=== PATIENT | female | born 1935 | race Caucasian/White ===

== ENCOUNTER → 2017-10-11 06:18 | Outpatient (CLI) | payer MEDICARE, OTHER, SELFPAY ==
--- NOTE | 2017-10-11 09:34 | STRESSREP ---
Stress Test Report Date: 10/11/2017 Procedure: Pharmacologic stress nuclear imaging study Indications: Chest pain [place]: Non-CAD related cardiomyopathy; ICD Consent: Per the patient Procedure: The patient underwent pharmacologic (Regadenoson) evaluation with a peak heart rate of 104 beats per minute (74 predicted maximal heart rate) and a peak blood pressure of 158/90 mmHg. The baseline ECG demonstrated electronic ventricular paced rhythm. The peak pharmacologic ECG demonstrated electronic ventricular paced rhythm. There were occasional PVCs pretest, during infusion, and recovery. [There was no complaint of chest discomfort during pharmacologic infusion or recovery]. The examination was discontinued secondary to completion of protocol. Impression: 1. Pharmacologic (Regadenoson) evaluation 2. Peak pharmacologic ECG with a continued electronic ventricular paced rhythm. 3. There were occasional PVCs pretest, during infusion, and recovery 4. Nuclear images pending Myocardial perfusion imaging study: Technique: The patient was injected with 11.7 millicuries of technetium 99m Cardiolite and subsequently rest SPECT Cardiolite nuclear imaging was obtained in the horizontal long, vertical long, and short axis views. The patient underwent pharmacologic (Regadenoson) evaluation with a peak heart rate of 104 beats per minute (74 % percent predicted maximal heart rate) and a peak blood pressure of 158/90 mmHg. The patient was injected with 33.3 millicuries of technetium 99m Cardiolite and subsequently stress SPECT Cardiolite nuclear imaging was obtained in the horizontal long, vertical long, and short axis views. A gated Cardiolite study at peak stress was obtained. Interpretation: Rest and stress SPECT Cardiolite nuclear imaging status post realignment, normalization, and attenuation correction demonstrate dense of diminished absence of myocardial perfusion/tracer uptake in the apical areas without significant change between rest and stress. There is diminished end systolic thickening and brightening especially in the apical areas. The gated Cardiolite study demonstrates diminished myocardial thickening and inward wall motion especially in the apical areas. The reported LVEF is 29 %. Impression: 1. Rest and stress SPECT Cardiolite nuclear imaging demonstrating diminished myocardial perfusion/tracer uptake in the apical areas without significant change between rest and stress potentially compatible with an area of previous myocardial injury/infarction with no obvious myocardial perfusion changes consider diagnostic for associated stress-induced myocardial ischemia. 2. The gated Cardiolite study reports an LVEF of 29%. This note was generated with [employer] software. It may contain incorrect words, spelling, and punctuation that were not noted in checking the note before signing.
== END ==
PROVIDERS: Family Provider Family Medicine; PCP Family Medicine; Visit Provider Internal Medicine Cardiovascular Disease
DX: I10 Essential (primary) hypertension (principal); R07.9 Chest pain, unspecified; I44.7 Left bundle-branch block, unspecified; I42.0 Dilated cardiomyopathy; Z95.810 Presence of automatic (implantable) cardiac defibrillator
CPT/HCPCS: 78452; 93017; A9500; A4216; J2785

== ENCOUNTER → 2018-09-09 06:59 | Outpatient (CLI) | payer MEDICARE, OTHER, SELFPAY ==
[2018-09-09 07:08] LABS: Mucous, Urine 0 SEEN /hpf (<or=2+); Red Blood Cells-Urine 0 SEEN /hpf (0-5); White Blood Cells 0 SEEN /hpf (0-5)
[2018-09-09 07:23] LABS: Color, Urine Yellow (Yellow); Glucose, Dipstick Normal (Normal); Ketone-Dipstick Negative (Negative); Leukocyte Esterase-Dipstick 25 /ul (Negative); Nitrite-Dipstick Negative (Negative); Occult Blood-Urine Negative /ul (Negative); Protein-Dipstick 30 mg/dl (Negative); Urine Bilirubin Dipstick Negative (Negative); Urine Clarity Sl. Cloudy (Clear); Urine Urobilinogen Normal (Normal)
--- NOTE | 2018-09-09 07:25 | RAD_ITS ---
STUDY: X-RAY CHEST REASON FOR EXAM: Female, 83 years old. Pacemaker generator change. TECHNIQUE: PA and lateral views of the chest. COMPARISON: Comparison is made with prior study dated October 15, 2013. FINDINGS: Stable mild increased markings at the lung bases suggestive of a mild bibasilar scarring. This is more prominent on the left side. There is no demonstrated pleural abnormality. There is moderate cardiac enlargement. A left-sided dual-chamber pacemaker is seen. Normal mediastinum and dale. Normal visualized pulmonary arteries. There is atherosclerotic calcification of the aortic arch with tortuosity. There is demineralization of the osseous structures. Normal visualized ribs, clavicles, and shoulders. Surgical clips are seen in the right upper quadrant suggestive of prior cholecystectomy. RAD/Chest PA and Lateral IMPRESSION: Stable mild increased markings at the lung bases suggestive of a mild interstitial scarring. Electronically Signed: Cipriano Medina, at 10:01 EDT , Service support ,
[2018-09-09 07:31] LABS: Bacteria RARE /hpf (None Seen); Squamous Epithelial Cells - UA 0-5 SEEN /hpf (5-10)
[2018-09-09 07:38] LABS: Hemoglobin 10.3 g/dl (12.0-15.0); Mean Corp Hgb Conc 32.2 g/gl (32-36); Mean Corpuscular Volume 62.1 fL (81-99); Mean Platelet Vol. 9.2 fl (6.2-12.0); Platelet Count 311 K/mm3 (150-450); RBC Distribution Width CV 16.1 % (11.6-14.6); RBC Distribution Width SD 35.7 fl (35.1-43.9); Red Blood Count 5.15 M/mm3 (4.2-5.4); White Blood Count 7.6 K/mm3 (4.4-11.0)
[2018-09-09 07:40] LABS: International Normalized Ratio 1.1; Prothrombin Time (Protime)PT. 13.6 SECONDS (11.7-14.9)
[2018-09-09 07:47] LABS: Anion Gap 10 (5-15); BUN 25 mg/dL (7-18); BUN/Creat Ratio 20.2 RATIO (10-20); Calcium,Total 9.7 mg/dL (8.5-10.1); Chloride 105 mmol/L (98-107); Creatinine, Serum 1.24 mg/dL (0.55-1.02); EST Glomerular Filtration Rate 44 mL/min (>60); Est Glom Filt Rate - Afr Amer 53 mL/min (>60); Glucose 133 mg/dL (74-106); Potassium 3.2 mmol/L (3.5-5.1); Sodium Level 144 mmol/L (136-145)
[2018-09-09 07:57] LABS: Scan Indicated on CBC? Y/N NO
== END ==
PROVIDERS: Family Provider Family Medicine; PCP Family Medicine; Referring Provider Internal Medicine Cardiovascular Disease; Visit Provider Internal Medicine Cardiovascular Disease
DX: I42.0 Dilated cardiomyopathy (principal); I44.7 Left bundle-branch block, unspecified; Z95.810 Presence of automatic (implantable) cardiac defibrillator
CPT/HCPCS: 36415; 71046; 80048; 81001; 85027; 85610

== ENCOUNTER 2018-09-26 09:26 | Day surgery (SDC) | payer MEDICARE, OTHER, SELFPAY ==
[2018-09-09 09:46] VITALS: BMI 25.0
--- NOTE | 2018-09-09 10:42 | HP_ITS ---
HPI HPI History of Present Illness Surgical H&P: Yes Details: This is an 83-year-old white female who presents today for outpatient cardiovascular follow-up. She has a history of a non-CAD related cardiomyopathy status post biventricular ICD/TELEHEALTH DIRECTOR therapy superimposed upon a history of underlying aortic valve disease, hyperlipidemia, and hypertension. She notes overall from a cardiovascular standpoint she has had no symptoms suspicious for acute angina pectoris, acute CHF/pulmonary edema, near syncope/syncope, or ICD discharge. She notes while spending the winter in [place] her medications were adjusted. Her ARB and her Spironolactone/Aldactone were discontinued as well as her statin therapy. She does not understand why. She did have her ICD interrogated. She is due to have a generator change on 09-26-18. She also had laboratory work done this morning. It is noted that her potassium level was low at 3.2. Intake Vital Signs 09/09/18 Height 5 ft 2 in 09/09/18 Weight: 137 lb 09/09/18 Body Mass Index (BMI) 25.0 09/09/18 Blood Pressure 100/56 L 09/09/18 Blood Pressure Location Lt brachial 09/09/18 Blood Pressure Position Sitting 09/09/18 Respiratory Rate 16 09/09/18 Pulse Rate 76 09/09/18 Pulse Source Auscultation Intake Visit Reasons: H&P/gen change 09-26; Kaylene 10:30 Supervisor Doping Required: No Accompanied by: Self Allergies SALENA Inhibitors Allergy (Verified 09/09/18 09:46) Unknown cefdinir [From Omnicef] Allergy (Verified 09/09/18 09:46) Unknown cephalexin Allergy (Verified 09/09/18 09:46) Unknown clarithromycin [From Biaxin] Allergy (Verified 09/09/18 09:46) Unknown codeine Allergy (Verified 09/09/18 09:46) Unknown fosinopril sodium [From Monopril] Allergy (Verified 09/09/18 09:46) Unknown lansoprazole [From Prevacid] Allergy (Verified 09/09/18 09:46) Unknown meperidine HCl [From Demerol] Allergy (Verified 09/09/18 09:46) Unknown omeprazole [From Prilosec] Allergy (Verified 09/09/18 09:46) Unknown omeprazole magnesium [From Prilosec] Allergy (Verified 09/09/18 09:46) Unknown pseudoephedrine HCl [From Sudafed] Allergy (Verified 09/09/18 09:46) Unknown rabeprazole sodium [From Aciphex] Allergy (Verified 09/09/18 09:46) Unknown Medications Albuterol Aerosols [Ventolin Aerosols] 2.5 mg INHALATION Q6H PRN PRN 10/21/13 [History Confirmed 09/09/18] Budesonide/Formoterol 160/4.5 [Symbicort 160/4.5 Mcg Inhaler (SP)] 4.5 mcg INHALATION PRN PRN 10/21/13 [History Confirmed 09/09/18] Carvedilol 25 mg PO BID 10/21/13 [History Confirmed 09/09/18] Fluticasone 0.05% [Flonase Nasal [place]] 1 spray NASAL DAILY 10/21/13 [History Confirmed 09/09/18] calcium carbonate 200 mg calcium (500 mg) chewable tablet 200 mg PO DAILY PRN tab 09/09/18 [History Confirmed 09/09/18] cholecalciferol (vitamin D3) 5,000 unit capsule 5,000 unit PO DAILY 09/09/18 [History Confirmed 09/09/18] coenzyme Q10 200 mg/gram oral powder 200 mg PO DAILY g 09/09/18 [History Confirmed 09/09/18] hydrochlorothiazide 25 mg tablet 25 mg PO DAILY tab 09/09/18 [History Confirmed 09/09/18] irbesartan 75 mg tablet 75 mg PO DAILY #90 tab 09/09/18 [Rx Confirmed 09/09/18] omega-3 fatty acids 1,000 mg capsule 1,000 mg PO DAILY 09/09/18 [History Confirmed 09/09/18] potassium chloride ER 20 mEq tablet,extended release 20 meq PO DAILY #30 tab 09/09/18 [Rx Confirmed 09/09/18] ranitidine 150 mg tablet 150 mg PO BID 09/09/18 [History Confirmed 09/09/18] spironolactone 25 mg tablet 12.5 mg PO DAILY #90 tab 09/09/18 [Rx Confirmed 09/09/18] PFSH Medical History Cardiomyopathy (Chronic) Essential hypertension (Chronic) Hyperlipidemia (Acute) Chest pain (Acute) Dilated cardiomyopathy (Chronic) 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) Hypertension (Inactive) Surgical History History of bone marrow biopsy (Resolved) Social History Smoking Status: Never smoker ROS Const Const: Positive for fatigue; negative for weakness, frequent falls, excessive sweating, weight gain or weight loss Eyes Eyes: Negative for transient loss of vision, blurry vision or change in vision ENT ENT: Negative for dizziness or balance problems Cardio Chest Pain: Yes Character: dull, squeezing Onset: exercise Location: left chest Duration: brief Relieving: rest Palpitations: No Edema: None Muscle aches with walking: None Resp Respiratory: Negative for SOB with activity or SOB at rest GI GI: Negative vomiting or vomiting blood/hematemesis : Negative for hematuria Musc Musc: Positive for muscle aches/ myalgia (bulging disc, bilat LE pain); negative for muscle weakness, joint pain or balance problems Skin Skin: Negative non-healing lesions or rash Neuro Neuro: Negative for dizziness, lightheadedness, orthostatic symptoms, frequent falls, weakness or blurry vision Isaias Hematologic/Lymphatic: Negative for easy bleeding Endo Endo: Positive for fatigue; negative for excessive sweating Psych Psych: Negative for anxiety or depression Allergy Allergy/Immunology: Negative for hives, Negative for rash Cardiology Exam Const Appearance: cooperative, healthy appearing, comfortable, no acute distress, well developed and well groomed Nutritional Appearance: average body habitus Orientation: alert, awake and oriented x3 Head Head: normal to inspection, normocephalic and atraumatic Ears: hearing grossly normal bilaterally Nose: external nose normal Face and Sinus: face symmetric Mouth: oral mucosae normal Teeth and gingiva: fair dentition Eyes Eyelids: eyelids normal Conjunctivae: conjunctivae normal Pupils: PERRL EOM: EOM intact bilaterally Neck Neck: normal visual inspection and full ROM Carotids: normal carotid upstroke Chest Chest inspection: normal inspection of the chest, symmetric chest movement and normal respiratory effort Auscultation: Bilateral: Clear to Auscultation Cardio Palpation: normal PMI Rate: regular rate Rhythm: regular rhythm Heart sounds: S1 normal and S2 normal Murmur: Grade 2/6, soft, mid systolic, LLSB and LVOT GI GI: normal to inspection, soft and bowel sounds present Neuro General: alert, awake, oriented x3 and moves all extremities Skin Skin: no rashes or lesions noted Extremities Pulses: Normal: Right Radial Pulse, Left Radial Pulse Lower Extremity Edema: None: Bilateral Psych Psychological: normal affect Assessment & Plan 1. Dilated cardiomyopathy I42.0 Plan At the present time she will continue risk factor modification and medical management. With her medications ideally as long as she tolerates it with no adverse effects she would be on additional medical therapy with her ARB and her Spironolactone/Aldactone therapy. Thus her Avapro will be restarted at her previous dose of 75 mg a day. Her Spironolactone/Aldactone will be restarted at her previous dose of 12.5 mg a day. She was also noted to have a low potassium. In the interim she will be placed on a potassium supplement with 40 mEq p.o. x1 on day 1 and then 20 mEq p.o. daily. She will be asked to have her BMP rechecked in approximately 1 week. At that time consideration will be given as to whether or not she needs to remain on her potassium supplement or not. Hopefully she will tolerate the medication adjustments without any adverse effect. Hopefully they will help with her underlying cardiovascular condition. Orders Orders: Basic Metabolic Profile (BMP) 1 Week 2. Biventricular implantable cardioverter-defibrillator (ICD) in situ Z95.810 Plan She is being scheduled for upcoming biventricular ICD/TELEHEALTH DIRECTOR therapy/device change. This is tentatively scheduled for 09-26-18 to be performed at [facility]. Orders Orders: 12 Lead EKG performed by [facility] [place] Today Basic Metabolic Profile (BMP) 1 Week 3. Aortic valve disorder I35.9 Plan She does have a history of an underlying aortic valve disorder. Her most recent transthoracic echocardiogram was performed on 08-27-15. At that time her aortic valve demonstrated mild aortic valve stenosis. It may be reasonable in time to repeat her transthoracic echocardiogram to reassess her aortic valve anatomy and physiology. However as she has been off her medication it may be reasonable to wait for a period of time before repeating it to not only reassess her aortic valve but also her ventricular size, wall motion, and systolic function. 4. Hyperlipidemia, unspecified hyperlipidemia type E78.5 Plan A copy of her most recent lipid labs will be requested for continuity of care purposes. This may help decide whether she needs to remain on lipid-lowering therapy or not. Orders Orders: Basic Metabolic Profile (BMP) 1 Week 5. Essential hypertension I10 Plan Her blood pressure appears to be within acceptable range at this time. Hopefully restarting her medications at low dose this will not negatively affect her blood pressure to the point where she cannot tolerate her medications. Orders Orders: 12 Lead EKG performed by [facility] Today Basic Metabolic Profile (BMP) 1 Week Plan Detail Other Orders Orders: 12 Lead EKG performed by [facility] Today I44.7 Other Medications New: irbesartan (Avapro) 75 mg PO DAILY 90 tabs 3RF spironolactone (Aldactone) 12.5 mg (1/2 x 25 mg) PO DAILY 90 tabs 3RF potassium chloride ER 2 tablets on Day 1; then 1 tab a day 20 mEq PO DAILY 30 tabs 3RF Additional Comments The above was discussed with her. She was agreeable to this approach. Thank you for allowing me to participate in the care of your patient. Please don't hesitate to call if any issues arise. This note was generated using a voice recognition system and there may be incorrect words, spelling or punctuation that were not noted when reviewing the office note prior to saving. Follow Up 09/09/18 (copy of PCP lipid labs) 6 Months (PFM) Coding Level of Care Code Off vis,est,level 4 Diagnoses Dilated cardiomyopathy I42.0 Biventricular implantable cardioverter-defibrillator (ICD) in situ Z95.810 Aortic valve disorder I35.9 Hyperlipidemia, unspecified hyperlipidemia type E78.5 ??Hyperlipidemia type: unspecified Essential hypertension I10 Coding Level of Care Code Off vis,est,level 4 Diagnoses Dilated cardiomyopathy I42.0 Biventricular implantable cardioverter-defibrillator (ICD) in situ Z95.810 Aortic valve disorder I35.9 Hyperlipidemia, unspecified hyperlipidemia type E78.5 ??Hyperlipidemia type: unspecified Essential hypertension I10 Supplemental Info Supplemental Information Stress Test Report Date: 10/11/2017 Procedure: Pharmacologic stress nuclear imaging study Indications: Chest pain [place]: Non-CAD related cardiomyopathy; ICD Consent: Per the patient Procedure: The patient underwent pharmacologic (Regadenoson) evaluation with a peak heart rate of 104 beats per minute (74 predicted maximal heart rate) and a peak blood pressure of 158/90 mmHg. The baseline ECG demonstrated electronic ventricular paced rhythm. The peak pharmacologic ECG demonstrated electronic ventricular paced rhythm. There were occasional PVCs pretest, during infusion, and recovery. [There was no complaint of chest discomfort during pharmacologic infusion or recovery]. The examination was discontinued secondary to completion of protocol. Impression: 1. Pharmacologic (Regadenoson) evaluation 2. Peak pharmacologic ECG with a continued electronic ventricular paced rhythm. 3. There were occasional PVCs pretest, during infusion, and recovery 4. Nuclear images pending Myocardial perfusion imaging study: Technique: The patient was injected with 11.7 millicuries of technetium 99m Cardiolite and subsequently rest SPECT Cardiolite nuclear imaging was obtained in the horizontal long, vertical long, and short axis views. The patient underwent pharmacologic (Regadenoson) evaluation with a peak heart rate of 104 beats per minute (74 % percent predicted maximal heart rate) and a peak blood pressure of 158/90 mmHg. The patient was injected with 33.3 millicuries of technetium 99m Cardiolite and subsequently stress SPECT Cardiolite nuclear imaging was obtained in the horizontal long, vertical long, and short axis views. A gated Cardiolite study at peak stress was obtained. Interpretation: Rest and stress SPECT Cardiolite nuclear imaging status post realignment, normalization, and attenuation correction demonstrate dense of diminished absence of myocardial perfusion/tracer uptake in the apical areas without significant change between rest and stress. There is diminished end systolic thickening and brightening especially in the apical areas. The gated Cardiolite study demonstrates diminished myocardial thickening and inward wall motion especially in the apical areas. The reported LVEF is 29 %. Impression: 1. Rest and stress SPECT Cardiolite nuclear imaging demonstrating diminished myocardial perfusion/tracer uptake in the apical areas without significant change between rest and stress potentially compatible with an area of previous myocardial injury/infarction with no obvious myocardial perfusion changes consider diagnostic for associated stress-induced myocardial ischemia. 2. The gated Cardiolite study reports an LVEF of 29%. Labs LDL Cholesterol 92 mg/dL (0-130) 10/15/13 HDL Cholesterol 45 mg/dL (40-) 10/15/13 Triglycerides 102 mg/dL (0-199) 10/15/13 VLDL Cholesterol 20 mg/dL (5-40) 10/15/13 Diagnostics Electrocardiogram 09/09/18 Stress Test Nuclear Medicine 10/11/17 Stress Test 10/11/17 Pacemaker Check 07/30/18 Chest X-Ray 09/09/18 09/09/18 [id number] <Electronically signed by Fernandez villarreal MD> Date _ Fernandez Hernandez MD I have re-examined the patient. There are no clinical changes since date of exam.
[2018-09-25 10:08] VITALS: BMI 25.0
--- NOTE | 2018-09-26 10:11 | PCM.HP.BLA ---
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 Status: Chronic (2) Cardiomyopathy Status: Chronic History and Physical Date of Admission: 09/26/18 [facility] Medical Records Department [address] [place] [address] History and Physical 09/09/18 1042 MR#: [id number] Acct: [id number] Name: NATASHA DAVIDSON Rep #: [id number] : [id number] From: Fernandez Hernandez MD PCP: Amadou Nye MD Status: [facility] [place] [facility] H[facility] HPI History of Present Illness Surgical H&P: Yes Details: This is an 83-year-old white female who presents today for outpatient cardiovascular follow-up. She has a history of a non-CAD related cardiomyopathy status post biventricular ICD/RECRUITER ACCOUNT MANAGER therapy superimposed upon a history of underlying aortic valve disease, hyperlipidemia, and hypertension. She notes overall from a cardiovascular standpoint she has had no symptoms suspicious for acute angina pectoris, acute CHF/pulmonary edema, near syncope/syncope, or ICD discharge. She notes while spending the winter in [place] her medications were adjusted. Her ARB and her Spironolactone/Aldactone were discontinued as well as her statin therapy. She does not understand why. She did have her ICD interrogated. She is due to have a generator change on 09-26-18. She also had laboratory work done this morning. It is noted that her potassium level was low at 3.2. Intake VS: see chart Allergies SALENA Inhibitors Allergy (Verified 09/09/18 09:46) Unknown cefdinir [From Omnicef] Allergy (Verified 09/09/18 09:46) Unknown cephalexin Allergy (Verified 09/09/18 09:46) Unknown clarithromycin [From Biaxin] Allergy (Verified 09/09/18 09:46) Unknown codeine Allergy (Verified 09/09/18 09:46) Unknown fosinopril sodium [From Monopril] Allergy (Verified 09/09/18 09:46) Unknown lansoprazole [From Prevacid] Allergy (Verified 09/09/18 09:46) Unknown meperidine HCl [From Demerol] Allergy (Verified 09/09/18 09:46) Unknown omeprazole [From Prilosec] Allergy (Verified 09/09/18 09:46) Unknown omeprazole magnesium [From Prilosec] Allergy (Verified 09/09/18 09:46) Unknown pseudoephedrine HCl [From Sudafed] Allergy (Verified 09/09/18 09:46) Unknown rabeprazole sodium [From Aciphex] Allergy (Verified 09/09/18 09:46) Unknown Medications Albuterol Aerosols [Ventolin Aerosols] 2.5 mg INHALATION Q6H PRN PRN 10/21/13 [History Confirmed 09/09/18] Budesonide/Formoterol 160/4.5 [Symbicort 160/4.5 Mcg Inhaler (SP)] 4.5 mcg INHALATION PRN PRN 10/21/13 [History Confirmed 09/09/18] Carvedilol 25 mg PO BID 10/21/13 [History Confirmed 09/09/18] Fluticasone 0.05% [Flonase Nasal [place]] 1 spray NASAL DAILY 10/21/13 [History Confirmed 09/09/18] calcium carbonate 200 mg calcium (500 mg) chewable tablet 200 mg PO DAILY PRN tab 09/09/18 [History Confirmed 09/09/18] cholecalciferol (vitamin D3) 5,000 unit capsule 5,000 unit PO DAILY 09/09/18 [History Confirmed 09/09/18] coenzyme Q10 200 mg/gram oral powder 200 mg PO DAILY g 09/09/18 [History Confirmed 09/09/18] hydrochlorothiazide 25 mg tablet 25 mg PO DAILY tab 09/09/18 [History Confirmed 09/09/18] irbesartan 75 mg tablet 75 mg PO DAILY #90 tab 09/09/18 [Rx Confirmed 09/09/18] omega-3 fatty acids 1,000 mg capsule 1,000 mg PO DAILY 09/09/18 [History Confirmed 09/09/18] potassium chloride ER 20 mEq tablet,extended release 20 meq PO DAILY #30 tab 09/09/18 [Rx Confirmed 09/09/18] ranitidine 150 mg tablet 150 mg PO BID 09/09/18 [History Confirmed 09/09/18] spironolactone 25 mg tablet 12.5 mg PO DAILY #90 tab 09/09/18 [Rx Confirmed 09/09/18] PFSH Medical History Cardiomyopathy (Chronic) Essential hypertension (Chronic) Hyperlipidemia (Acute) Chest pain (Acute) Dilated cardiomyopathy (Chronic) 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) Hypertension (Inactive) Surgical History History of bone marrow biopsy (Resolved) Social History Smoking Status: Never smoker ROS Const Const: Positive for fatigue; negative for weakness, frequent falls, excessive sweating, weight gain or weight loss Eyes Eyes: Negative for transient loss of vision, blurry vision or change in vision ENT ENT: Negative for dizziness or balance problems Cardio Chest Pain: Yes Character: dull, squeezing Onset: exercise Location: left chest Duration: brief Relieving: rest Palpitations: No Edema: None Muscle aches with walking: None Resp Respiratory: Negative for SOB with activity or SOB at rest GI GI: Negative vomiting or vomiting blood/hematemesis : Negative for hematuria Musc Musc: Positive for muscle aches/ myalgia (bulging disc, bilat LE pain); negative for muscle weakness, joint pain or balance problems Skin Skin: Negative non-healing lesions or rash Neuro Neuro: Negative for dizziness, lightheadedness, orthostatic symptoms, frequent falls, weakness or blurry vision Isaias Hematologic/Lymphatic: Negative for easy bleeding Endo Endo: Positive for fatigue; negative for excessive sweating Psych Psych: Negative for anxiety or depression Allergy Allergy/Immunology: Negative for hives, Negative for rash Cardiology Exam Const Appearance: cooperative, healthy appearing, comfortable, no acute distress, well developed and well groomed Nutritional Appearance: average body habitus Orientation: alert, awake and oriented x3 Head Head: normal to inspection, normocephalic and atraumatic Ears: hearing grossly normal bilaterally Nose: external nose normal Face and Sinus: face symmetric Mouth: oral mucosae normal Teeth and gingiva: fair dentition Eyes Eyelids: eyelids normal Conjunctivae: conjunctivae normal Pupils: PERRL EOM: EOM intact bilaterally Neck Neck: normal visual inspection and full ROM Carotids: normal carotid upstroke Chest Chest inspection: normal inspection of the chest, symmetric chest movement and normal respiratory effort Auscultation: Bilateral: Clear to Auscultation Cardio Palpation: normal PMI Rate: regular rate Rhythm: regular rhythm Heart sounds: S1 normal and S2 normal Murmur: Grade 2/6, soft, mid systolic, LLSB and LVOT GI GI: normal to inspection, soft and bowel sounds present Neuro General: alert, awake, oriented x3 and moves all extremities Skin Skin: no rashes or lesions noted Extremities Pulses: Normal: Right Radial Pulse, Left Radial Pulse Lower Extremity Edema: None: Bilateral Psych Psychological: normal affect Assessment & Plan 1. Dilated cardiomyopathy I42.0 Plan At the present time she will continue risk factor modification and medical management. With her medications ideally as long as she tolerates it with no adverse effects she would be on additional medical therapy with her ARB and her Spironolactone/Aldactone therapy. Thus her Avapro will be restarted at her previous dose of 75 mg a day. Her Spironolactone/Aldactone will be restarted at her previous dose of 12.5 mg a day. She was also noted to have a low potassium. In the interim she will be placed on a potassium supplement with 40 mEq p.o. x1 on day 1 and then 20 mEq p.o. daily. She will be asked to have her BMP rechecked in approximately 1 week. At that time consideration will be given as to whether or not she needs to remain on her potassium supplement or not. Hopefully she will tolerate the medication adjustments without any adverse effect. Hopefully they will help with her underlying cardiovascular condition. Orders Orders: Basic Metabolic Profile (BMP) 1 Week 2. Biventricular implantable cardioverter-defibrillator (ICD) in situ Z95.810 Plan She is being scheduled for upcoming biventricular ICD/RECRUITER ACCOUNT MANAGER therapy/device change. This is tentatively scheduled for 09-26-18 to be performed at [facility]. Orders Orders: 12 Lead EKG performed by [facility] Today Basic Metabolic Profile (BMP) 1 Week 3. Aortic valve disorder I35.9 Plan She does have a history of an underlying aortic valve disorder. Her most recent transthoracic echocardiogram was performed on 08-27-15. At that time her aortic valve demonstrated mild aortic valve stenosis. It may be reasonable in time to repeat her transthoracic echocardiogram to reassess her aortic valve anatomy and physiology. However as she has been off her medication it may be reasonable to wait for a period of time before repeating it to not only reassess her aortic valve but also her ventricular size, wall motion, and systolic function. 4. Hyperlipidemia, unspecified hyperlipidemia type E78.5 Plan A copy of her most recent lipid labs will be requested for continuity of care purposes. This may help decide whether she needs to remain on lipid-lowering therapy or not. Orders Orders: Basic Metabolic Profile (BMP) 1 Week 5. Essential hypertension I10 Plan Her blood pressure appears to be within acceptable range at this time. Hopefully restarting her medications at low dose this will not negatively affect her blood pressure to the point where she cannot tolerate her medications. Orders Orders: 12 Lead EKG performed by [facility] Today Basic Metabolic Profile (BMP) 1 Week Plan Detail Other Orders Orders: 12 Lead EKG performed by [facility] Today I44.7 Other Medications New: irbesartan (Avapro) 75 mg PO DAILY 90 tabs 3RF spironolactone (Aldactone) 12.5 mg (1/2 x 25 mg) PO DAILY 90 tabs 3RF potassium chloride ER 2 tablets on Day 1; then 1 tab a day 20 mEq PO DAILY 30 tabs 3RF Additional Comments The above was discussed with her. She was agreeable to this approach. Thank you for allowing me to participate in the care of your patient. Please don't hesitate to call if any issues arise. This note was generated using a voice recognition system and there may be incorrect words, spelling or punctuation that were not noted when reviewing the office note prior to saving. Follow Up 09/09/18 (copy of PCP lipid labs) 6 Months (PFM) Coding Level of Care Code Off vis,est,level 4 Diagnoses Dilated cardiomyopathy I42.0 Biventricular implantable cardioverter-defibrillator (ICD) in situ Z95.810 Aortic valve disorder I35.9 Hyperlipidemia, unspecified hyperlipidemia type E78.5 ??Hyperlipidemia type: unspecified Essential hypertension I10 Coding Level of Care Code Off vis,est,level 4 Diagnoses Dilated cardiomyopathy I42.0 Biventricular implantable cardioverter-defibrillator (ICD) in situ Z95.810 Aortic valve disorder I35.9 Hyperlipidemia, unspecified hyperlipidemia type E78.5 ??Hyperlipidemia type: unspecified Essential hypertension I10 Updated 09/26/2018: Reviewed H&P, assessed pt, no changes since last OV.
--- NOTE | 2018-09-26 12:34 | OP.PCM_ITS ---
Report of Operation Date of Procedure: 09/26/18 Description of Surgical Findings:: Preoperative diagnosis is device at end of life for normal battery depletion. Postoperative diagnosis same as above. After informed consent and IV antibiotics the patient was brought to the [place] catheterization laboratory and the skin over the device was prepped and draped in the usual sterile manner. Intermittent boluses of Versed, and fentanyl were used for sedation and analgesia as well as 1% subcutaneous lidocaine. An incision was made over the pre-existing device. Using blunt and Bovie dissection the pocket was opened and the device was removed. Careful attention was paid not to injure the pre-existing leads. The leads were removed from the device header and they were interrogated. There is normal lead function. Hemostasis was obtained. The pocket was flushed with antibiotic solution. The sponge and needle count were correct. The new device was brought to the field. The leads were placed in the appropriate position in the header and secured by the set screw. The leads and the device were then placed in the pocket. The pocket was closed with a deep layer of running 2-0 Vicryl, a superficial layer of running 4-0 Vicryl, skin with Steri-Strips which were covered with a rolled 4 x 4 and Tegaderm. Patient left the room with the device programmed to proper parameters and there were no complications. The device is a [employer] BiV pacer/ICD chamber generator. All lead parameters were tested and found to be functionally normal. Lead and device serial and model numbers are available in the chart documents provided by the device company merchandising representative procedure summary.
== END 2018-09-26 14:30 | disposition home or self-care (01) ==
LOC: CLSP 09:27
PROVIDERS: Family Provider Family Medicine; PCP Family Medicine; Referring Provider Internal Medicine Cardiovascular Disease; Visit Provider Internal Medicine Cardiovascular Disease
DX: I42.0 Dilated cardiomyopathy (principal); E87.6 Hypokalemia; I35.9 Nonrheumatic aortic valve disorder, unspecified; E78.5 Hyperlipidemia, unspecified; I10 Essential (primary) hypertension; Z95.810 Presence of automatic (implantable) cardiac defibrillator; Z88.1 Allergy status to other antibiotic agents
CPT/HCPCS: 33264; 93641; 99152; 99153; J7040; J7050

== ENCOUNTER → 2019-01-21 12:31 | Outpatient (CLI) | payer MEDICARE, OTHER, SELFPAY ==
[2019-01-16 11:29] VITALS: BMI 24.8
--- NOTE | 2019-01-21 12:32 | ECHOD_ITS ---
Reason For Study: CARDIOMYOPATHY Procedure This was a 2D Doppler, Color Flow transthoracic echocardiogram. The exam was of adequate technical quality. Exam performed in department. Left Ventricle Mildly dilated left ventricle. Moderate segmental systolic dysfunction (see wall motion). The estimated ejection fraction is 30 %. Diastolic function is indeterminate. Anterio-Basal: Hypokinetic. Lateral-Basal: Hypokinetic. Posterior-Basal: Hypokinetic. Infero-Basal: Hypokinetic. Basal inferoseptal: Hypokinetic. Basal anteroseptal: Hypokinetic. Mid-Anterior : Hypokinetic. Mid- Lateral : Hypokinetic. Mid-Posterior: Hypokinetic. Mid-Inferior: Hypokinetic. Mid-inferoseptal : Akinetic. Mid-anteroseptal : Hypokinetic. Anterior [place] : Hypokinetic. Inferior [place] : Akinetic. Lateral [place] : Dyskinetic. Septal [place] : Hypokinetic. Right Ventricle Normal RV size. ICD or pacer leads identified within the right ventricle. Normal systolic function. Atria Normal left atrium. Normal right atrium. ICD or pacer leads identified within the right atrium. No doppler evidence for ASD. Mitral Valve There is mild mitral annular calcification. Extension of the mitral annular calcification onto the mitral valve leaflet. Trivial mitral valve insufficiency. Tricuspid Valve Normal tricuspid valve. Trivial tricuspid valve insufficiency. Right ventricular systolic pressure estimated to be 26 mmHg. Aortic Valve The aortic valve is not well visualized. Moderate focal aortic valve calcification. Pulmonic Valve The pulmonic valve is not well visualized. Great Vessels Normal sized aortic root. Pericardium/Pleural No pericardial effusion. MMode/2D Measurements & Calculations LVIDd: 5.9 cm IVSd: 0.89 cm LVOT diam: 2.0 cm LVIDs: 4.8 cm LVPWd: 0.93 cm LVOT area: 3.3 cm2 RVDd: 2.9 cm FS: 18.6 % Ao root diam: 3.5 cm LAV(MOD-bp): 43.5 ml LA A4 area: 16.2 cm2 LAV(MOD-bp) Indexed: 27.1 ml/m2 LAV(MOD-sp2): 40.2 ml LAV(MOD-sp4): 43.7 ml LA dimension(2D): 3.3 cm RA A4 area: 10.2 cm2 Doppler Measurements & Calculations MV E max adebayo: 44.9 cm/sec Lat Peak E' Adebayo: 3.0 cm/sec Med Peak E' Adebayo: 2.7 cm/sec MV A max adebayo: 113.7 cm/sec E/E' lat: 14.8 E/E' med: 16.6 MV E/A: 0.40 MV V2 max: 114.4 cm/sec Ao V2 max: 168.7 cm/sec LV V1 max: 115.2 cm/sec MV max P.2 mmHg Ao max P.4 mmHg LV V1 max P.3 mmHg MV V2 mean: 51.8 cm/sec Ao V2 mean: 129.8 cm/sec LV V1 mean P.9 mmHg MV mean P.4 mmHg Ao mean P.5 mmHg LV V1 mean: 80.5 cm/sec MV V2 VTI: 37.4 cm Ao V2 VTI: 35.5 cm LV V1 VTI: 23.8 cm MVA(VTI): 2.1 cm2 HOMER(I,D): 2.2 cm2 HOMER(V,D): 2.2 cm2 SV(LVOT): 77.8 ml TR max adebayo: 237.5 cm/sec MV P1/2t-pr_phl: 165.9 msec TR max P.6 mmHg Interpretation Summary Mildly dilated left ventricle. Moderate segmental systolic dysfunction (see wall motion). The estimated ejection fraction is 30 %. There is mild mitral annular calcification. Extension of the mitral annular calcification onto the mitral valve leaflet. Trivial mitral valve insufficiency. Trivial tricuspid valve insufficiency. Moderate focal aortic valve calcification. Right ventricular systolic pressure estimated to be 26 mmHg. Diastolic function is indeterminate. ICD or pacer leads identified within the right atrium ICD or pacer leads identified within the right ventricle. 2D echocardiographic images demonstrate a small mobile somewhat calcified appearing echodensity appearing below the aortic valve apparatus of uncertain etiology with a differential diagnosis including, but not all inclusive of, a prominent Lambl's Exrecence, papillary fibroelastoma, vegetation, etc., cannot be excluded. Comment: C/W the previous TTE of 08/27/2015 there are similar type findings. Ordering Physician: Fernandez Hernandez Referring Physician: GIANFRANCO JACINTO Performed By: Alexandria Renteria, RDCS, RVT
== END ==
PROVIDERS: Family Provider Family Medicine; PCP Family Medicine; Referring Provider Internal Medicine Cardiovascular Disease; Visit Provider Internal Medicine Cardiovascular Disease
DX: I42.0 Dilated cardiomyopathy (principal); Z95.810 Presence of automatic (implantable) cardiac defibrillator
CPT/HCPCS: 93306

== ENCOUNTER 2021-07-14 08:59 | Outpatient (CLI) | payer MEDICARE, OTHER, SELFPAY ==
--- NOTE | 2021-07-14 09:01 | ECHOD_ITS ---
Reason For Study: MURMUR Procedure This was a 2D Doppler, Color Flow transthoracic echocardiogram. The study was technically difficult. Patient could not tolerate pressure of probe during exam. Exam performed in department. Left Ventricle Mildly dilated left ventricle. Severe segmental systolic dysfunction (see wall motion). The estimated ejection fraction is 25 %. Anterio-Basal: Hypokinetic. Infero-Basal: Hypokinetic. Basal inferoseptal: Hypokinetic. Mid-Anterior : Hypokinetic. Mid-Lateral : Hypokinetic. Mid-Posterior: Hypokinetic. Mid-Inferior: Hypokinetic. Mid-inferoseptal : Akinetic. Mid-anteroseptal : Akinetic. Anterior [place] : Akinetic. Inferior [place] : Akinetic. Lateral [place] : Dyskinetic. Septal [place] : Akinetic. Right Ventricle Normal RV size. ICD or pacer leads identified within the right ventricle. Normal systolic function. Atria The left atrium is mildly enlarged. Normal right atrium. ICD or pacer leads identified within the right atrium. No doppler evidence for ASD. Mitral Valve There is mild to moderate mitral annular calcification. Extension of the mitral annular calcification onto the base of the posterior mitral valve leaflet. Mild (1+) mitral valve insufficiency. Tricuspid Valve Normal tricuspid valve. Trivial tricuspid valve insufficiency. Right ventricular systolic pressure estimated to be 60 mmHg. Aortic Valve The aortic valve is not well visualized. Pulmonic Valve The pulmonic valve is not well visualized. Great Vessels Normal sized aortic root. Pericardium/Pleural No pericardial effusion. MMode/2D Measurements & Calculations LVIDd: 5.4 cm IVSd: 0.92 cm LVOT diam: 2.0 cm LVIDs: 4.7 cm LVPWd: 1.0 cm LVOT area: 3.2 cm2 RVDd: 3.2 cm FS: 11.6 % Ao root diam: 3.0 cm LAV(MOD-bp): 68.3 ml LVAd ap4: 40.2 cm2 LAV(MOD-bp) Indexed: 43.7 ml/m2 LVLd ap4: 8.9 cm LAV(MOD-sp2): 66.0 ml EDV(MOD-sp4): 150.0 ml LAV(MOD-sp4): 61.4 ml EDV(sp4-el): 154.8 ml LVAs ap4: 34.3 cm2 LVLs ap4: 8.3 cm ESV(MOD-sp4): 116.8 ml ESV(sp4-el): 120.4 ml EF(MOD-sp4): 22.1 % EF(sp4-el): 22.2 % LVAd ap2: 43.4 cm2 SV(MOD-sp4): 33.2 ml SV(MOD-sp2): 43.3 ml LVLd ap2: 9.1 cm EDV(MOD-sp2): 169.1 ml EDV(sp2-el): 176.0 ml LVAs ap2: 36.5 cm2 LVLs ap2: 8.6 cm ESV(MOD-sp2): 125.8 ml ESV(sp2-el): 130.9 ml EF(MOD-sp2): 25.6 % SV(sp4-el): 34.3 ml LA dimension(2D): 4.0 cm LA A4 area: 20.3 cm2 RA A4 area: 14.7 cm2 Time Measurements MV dec time: 0.20 sec Doppler Measurements & Calculations MV E max adebayo: 117.5 cm/sec Lat Peak E' Adebayo: 8.5 cm/sec Med Peak E' Adebayo: 4.4 cm/sec MV A max adebayo: 83.9 cm/sec E/E' lat: 13.9 E/E' med: 26.7 MV E/A: 1.4 Ao V2 max: 173.0 cm/sec LV V1 max: 70.5 cm/sec SV(LVOT): 48.4 ml Ao max P.0 mmHg LV V1 max P.0 mmHg Ao V2 mean: 121.6 cm/sec LV V1 mean P.0 mmHg Ao mean P.8 mmHg LV V1 mean: 47.3 cm/sec Ao V2 VTI: 35.2 cm LV V1 VTI: 15.2 cm HOMER(I,D): 1.4 cm2 HOMER(V,D): 1.3 cm2 PA V2 max: 79.4 cm/sec TR max adebayo: 377.5 cm/sec TR max P.0 mmHg ECHO/Echo Complete Interpretation Summary The study was technically difficult. Mildly dilated left ventricle. Severe segmental systolic dysfunction (see wall motion). The estimated ejection fraction is 25 %. The left atrium is mildly enlarged. There is mild to moderate mitral annular calcification. Extension of the mitral annular calcification onto the base of the posterior mi tral valve leaflet. Mild (1+) mitral valve insufficiency. Trivial tricuspid valve insufficiency. Right ventricular systolic pressure estimated to be 60 mmHg. Transmitral diastolic flow velocities suggest diastolic dysfunction (pseudonorm al pattern). ICD or pacer leads identified within the right atrium ICD or pacer leads identified within the right ventricle. 2D echocardiographic images demonstrate a small mobile somewhat calcified appea ring echodensity appearing below the aortic valve apparatus of uncertain etiology with a differe ntial diagnosis including, but not all inclusive of, a prominent Lambl's Exrecence, papillary f ibroelastoma, vegetation, etc., cannot be excluded. Comment: C/W the previous TTE of 01/22/20 19 there are similar type findings. Ordering Physician: Fernandez Hernandez Referring Physician: GIANFRANCO JACINTO Performed By: Tara Valencia RDCS
== END 2021-07-14 23:59 | disposition home or self-care (01) ==
LOC: CVS 09:01
PROVIDERS: PCP Family Medicine; Referring Provider Internal Medicine Cardiovascular Disease; Visit Provider Internal Medicine Cardiovascular Disease
DX: I42.0 Dilated cardiomyopathy (principal); I35.9 Nonrheumatic aortic valve disorder, unspecified
CPT/HCPCS: 93306

== ENCOUNTER 2021-08-04 15:37 | Inpatient (IN) | payer MEDICARE, OTHER, SELFPAY ==
--- NOTE | 2021-08-04 15:41 | HP.PCM.HOS_ITS ---
HPI - General General Date of Admission: 08/04/21 HPI Narrative NATASHA DAVIDSON, is a 86 F with an extensive PMH as outlined who was admitted as a transfer from [facility] ED where she had presented with a complaitn of shortness of breath at rest. She says she felt very weak and tired this morning and also felt short of breath and could not lay flat at all which was unusual for her. She denied any chest pain and admitted to a cough and some wheezing. She said cough was productive of clear sputum. She denied any chest pain, palpitations, dizziness, nausea or vomiting. She could not even go into work today because she was so tired so she went to the [facility] emergency room. SHe says she takes HCTZ and is not on any lasix. Her high sensitivity troponin was 138 there, and trended up to 180. [place] BNP [place] [address]. Creatinine was 1.54 with a baseline not known. Her D dimer was elevated, but CTA was negative for PE. CXR showed volume overload. EKG showed a paced rhythm. She was given a dose of lasix and transferred to [facility] for further management. 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 Cardiomyopathy Chest pain Dilated cardiomyopathy Essential hypertension GERD (gastroesophageal reflux disease) Hyperlipidemia Hypertension Hypertension Irregular heart beat Non-smoker Nonrheumatic aortic valve disorder Pacemaker Thalassemia minor Home Medications omega-3 fatty acids 1,000 mg capsule 1,000 mg PO DAILY 09/09/18 [History Last Taken Unknown] famotidine 20 mg tablet 20 mg PO DAILY 01/16/19 [History Last Taken 08/03/21] coenzyme Q10 100 mg capsule 100 mg PO DAILY 12/17/19 [History Last Taken 08/03/21] hyoscyamine sulfate 0.125 mg sublingual tablet 0.125 mg PO BID PRN PRN tablet 07/26/20 [History Last Taken Unknown] phenazopyridine 100 mg tablet 100 mg PO TID PRN 07/26/20 [History Last Taken Unknown] carvedilol 25 mg tablet 25 mg PO BID #180 tab 08/05/20 [Rx Last Taken 08/04/21] hydrochlorothiazide 25 mg tablet 12.5 mg PO DAILY tab 02/01/21 [History Last Taken 08/04/21] simvastatin 20 mg tablet 20 mg PO QHS #90 tab 02/01/21 [Rx Last Taken 08/04/21] albuterol sulfate 90 mcg/actuation aerosol inhaler 2 puff INHALATION Q4H PRN g 06/23/21 [History Last Taken 08/04/21] fluticasone propionate 50 mcg/actuation nasal spray,suspension 2 spray INTRANASAL DAILY 06/23/21 [History Last Taken 08/04/21] multivitamin 1 tab PO DAILY 06/23/21 [History Last Taken 08/03/21] Al hyd-Mg tr-alg ac-sod bicarb [Gaviscon] 1 tab PO DAILY PRN PRN 08/04/21 [History Last Taken Unknown] budesonide-formoterol [Symbicort] 2 puff INHALATION BID 08/04/21 [History Last Taken 08/03/21] cholecalciferol (vitamin D3) [Vitamin D3] 50 mcg PO DAILY 08/04/21 [History Last Taken 08/04/21] sacubitril-valsartan [Entresto] 1 tab PO BID 08/04/21 [History Last Taken 08/04/21] Allergy/AdvReac Type Severity Reaction Status Date / Time amoxicillin Allergy Unknown unknown Verified 06/23/21 10:27 SALENA Inhibitors Allergy Unknown Verified 07/26/20 10:47 cefdinir [From Omnicef] Allergy Unknown Verified 07/26/20 10:47 cephalexin Allergy Unknown Verified 07/26/20 10:47 clarithromycin [From Biaxin] Allergy Unknown Verified 07/26/20 10:47 codeine Allergy Unknown Verified 07/26/20 10:47 fosinopril sodium Allergy Unknown Verified 07/26/20 10:47 [From Monopril] lansoprazole [From Prevacid] Allergy Unknown Verified 07/26/20 10:47 meperidine HCl [From Demerol] Allergy Unknown Verified 07/26/20 10:47 omeprazole [From Prilosec] Allergy Unknown Verified 07/26/20 10:47 omeprazole magnesium Allergy Unknown Verified 07/26/20 10:47 [From Prilosec] pseudoephedrine HCl Allergy Unknown Verified 07/26/20 10:47 [From Sudafed] rabeprazole sodium Allergy Unknown Verified 04/26/21 10:47 [From Aciphex] Surgical History (Updated 08/04/21 @ 16:02 by Silva Hsieh) History of bone marrow biopsy History of cholecystectomy Social History Smoking Status: Never smoker ROS Constitutional Constitutional: Reports fatigue, malaise and weakness; Denies anorexia or chills Eyes Eyes: Denies change in vision ENT HEENT: Denies dysphagia, headache(s), nasal congestion, nasal discharge or sore throat Cardiovascular Cardiovascular: Reports dyspnea on exertion and orthopnea; Denies chest pain, edema, lightheadedness, palpitations, paroxysmal nocturnal dyspnea, rapid heart rate or syncope Respiratory/Chest Respiratory/Chest: Reports productive cough, shortness of breath at rest, shortness of breath with exertion and wheezing; Denies cough or dyspnea Gastrointestinal Gastrointestinal: Denies abdominal pain, coffee ground emesis, nausea or vomiting Genitourinary Genitourinary: Denies dysuria Musculoskeletal Musculoskeletal: Denies back pain or joint pain Neurologic Neurologic: Denies confusion, dizziness, focal weakness, headache(s), seizures or syncope Psychiatric Psychiatric: Denies anxiety Physical Exam Const alert, oriented x3 and no apparent distress General Appearance: cooperative HEENT normocephalic, head/scalp atraumatic and hearing grossly normal bilaterally Eyes PERRL, EOMs intact bilaterally and conjunctivae normal Neck no lymphadenopathy, supple and no JVD Resp Resp Narrative: mildly diminished breath sounds bibasally, no wheezes or crackles. On Cardio regular rate, regular rhythm, S1 normal heart sound, S2 normal heart sound and no murmurs GI normal to inspection, nondistended, normoactive bowel sounds, soft to palpation, non-tender, non-distended and hepatosplenomegaly Extremity normal to inspection, full ROM and no clubbing, cyanosis or edema Peripheral Pulses: Yes pulses 2+ throughout Skin no rashes or lesions noted Neuro oriented x3, CN's II-XII intact bilaterally and moves all extremities Sensorium / Orientation: awake and alert Psych affect normal Assessment & Plan Assessment/Plan (1) Heart failure: PLAN: #Acute on chronic exacerbation of HFrEF * Has a known EF of 25%. * Admit to PCU. * Diuresed with IV Lasix 40 mg twice daily. Monitor intake and output. Fluid restriction to 1500 cc daily. * 2D echo from * July 2021 showed mildly dilated left ventricle with severe segmental systolic dysfunction with EF of 25% and RVSP of 60 mmHg as well as diastolic dysfunction and ICD pacer leads identified in the right atrium and right ventricle. * consult cardiology * On Entresto and carvedilol. We will continue. * Cycle troponins. * #History of dilated cardiomyopathy with ICD in place * Follows with Dr. Hernandez. * On Entresto and carvedilol as well as statin. * #Hyperlipidemia: On statin DVT prophylaxis: Lovenox CODE STATUS:full code * Patient counseled extensively about different types of CODE STATUS including full code, DNR CCA and DNR CCA. Patient elects to be full code. Total rvwr-of-tdag time 17 minutes. Charges/Coding Visit Charges Inpatient E&M: 02062 Init Hosp L3 Procedures Hospitalists Procedures: 07781 Advncd Care Plan 30 Min
[2021-08-04 15:48] VITALS: PULSE 91
[2021-08-04 15:54] VITALS: BMI 24.7
[2021-08-04 16:04] VITALS: BP 150/83; PULSE 92; RESP 16; TEMP 36.6; O2SAT 97
--- NOTE | 2021-08-04 16:46 | EKG12_ITS ---
Test Reason : CP ADMISSION Blood Pressure : / mmHG Vent. Rate : 091 BPM Atrial Rate : 091 BPM P-R Int : 156 ms QRS Dur : 160 ms QT Int : 426 ms P-R-T Axes : 039 001 269 degrees QTc Int : 523 ms Atrial-sensed ventricular-paced rhythm Abnormal ECG No previous ECGs available Confirmed by MARSHALL STRONG, RADHA ([id number]), editor index ELIZABETH ACOSTA ([id number]) on 08/08/2021 1:57:41 PM Referred By: TILA Confirmed By:RADHA OLIVARES MD
[2021-08-04 17:13] LABS: Troponin-I HS 345 pg/mL (3.0-54.0)
[2021-08-04 17:17] LABS: Absolute Lymphocyte Count 0.81 X10^3/uL (0.83-4.51); Absolute Neutrophil Count 7.3 X10^3/uL (2.0-7.7); Basophil# 0.02 X10^3/uL; Basophil% 0.2 % (0-1); Eosinophil# 0.01 X10^3/uL; Eosinophils% 0.1 % (0-5); Hematocrit 26.1 % (37-47); Hemoglobin 8.4 g/dL (12.0-15.0); Lymphocyte # 0.81 X10^3/ul (0.83-4.51); Lymphocyte % 9.8 % (19-41); Mean Corp Hgb Conc 32.2 g/dL (32-36); Mean Corpuscular Volume 62.1 fL (81-99); Monocyte# 0.13 X10^3/uL; Monocyte% 1.6 % (0-10); NRBC Flagged by Analyzer 0.2 % (0-5); Neutrophil # 7.26 X10^3/uL (2.7-7.7); Neutrophil % 87.5 % (47-70); Platelet Count 184 K/mm3 (150-450); RBC Distribution Width CV 16.5 % (11.6-14.6); RBC Distribution Width SD 35.6 fl (35.1-43.9); White Blood Count 8.3 K/mm3 (4.4-11.0)
[2021-08-04] MEDS: Furosemide 40 MG/4 ML Vial IV (18:10)
[2021-08-04] MEDS: 0.9% Saline Lock 10 ML Syringe IV (18:10)
[2021-08-04 18:37] LABS: Anion Gap 11 (5-15); BUN 30 mg/dL (7-18); BUN/Creat Ratio 16.7 RATIO (10-20); Calcium,Total 8.5 mg/dL (8.5-10.1); Chloride 106 mmol/L (98-107); EST Glomerular Filtration Rate 29 mL/min (>60); Est Glom Filt Rate - Afr Amer 34 mL/min (>60); Estimated Creatinine Clearance 17.56 ml/min; Glucose 211 mg/dL (74-106); Potassium 3.8 mmol/L (3.5-5.1); Sodium Level 140 mmol/L (136-145); Troponin-I HS 379 pg/mL (3.0-54.0)
--- NOTE | 2021-08-04 18:54 | PCM.CONS.C ---
Assessment & Plan Assessment/Plan (1) Abnormal cardiac enzyme level: PLAN: The patient has abnormal cardiac enzyme levels. 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 However, she will be monitored for obvious changes. She has undergone recent noninvasive evaluation as noted. She may need to be considered for repeat evaluation of her coronary anatomy to evaluate for any obvious development/progression of disease that would contribute to her ongoing concerns and warrant further evaluation and care by performing diagnostic cardiac catheterization. This procedure and risks have been discussed with the patient and she was agreeable to this approach. In the meantime she will continue medical management as deemed appropriate. 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 She has undergone recent noninvasive evaluation with a transthoracic echocardiogram which is demonstrated her continued diminished LV systolic function/LVEF. At the moment she will continue medical therapy which does include IV furosemide/Lasix therapy. She will also have follow-up laboratory studies and radiologic studies. (3) Dilated cardiomyopathy: PLAN: The patient has a history of a non-CAD related dilated cardiomyopathy. She has been treated medically in the past and has done well/remained stable for some time now. She also has a biventricular ICD in place. Unfortunately her LV systolic function has not improved over time based upon her recent echocardiographic studies. She will continue medical therapy and further evaluation as deemed appropriate. This may include over time the addition of furosemide to her regimen based upon this event as well as potentially the advancement of her afterload reducing therapy such as Entresto as well as potentially addition of other agents such as SGLT2I agents-all as tolerated. 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 It has been monitored in the past and has been functioning appropriately. (5) Hyperlipidemia: QUALIFIERS: Hyperlipidemia type: unspecified Qualified Code(s): E78.5 - Hyperlipidemia, unspecified PLAN: The patient should continue risk factor evaluation care. (6) Essential hypertension: PLAN: The patient's blood pressure needs to be monitored and her medications adjusted taking into consideration her other comorbidities, etc. (7) Anemia: PLAN: The patient also has a history of anemia. Her hemoglobin is low. Is unclear as to whether or not this is contributing to her acute situation. Her hemoglobin will need to be monitored and depending upon the findings she may require additional evaluation and/or care with PRBC transfusions. (8) Renal insufficiency: PLAN: The patient also has an element of renal insufficiency. Her BUN and creatinine have increased. This may be secondary to her acute on chronic systolic mediated CHF event. Hopefully with treatment this will improve. This does need to be taken into consideration with adjustment of her medications and other diagnostic studies including diagnostic cardiac catheterization with the use of IV contrast. Addt'l Comments The patient's case has been discussed and reviewed with the patient. This note was generated using a voice recognition system and there may be incorrect words, spelling or punctuation that were not noted when reviewing the office note prior to saving. HPI Consult Data Date of Consult: 08/04/21 HPI Narrative HPI Narrative: NATASHA DAVIDSON, is a 86 year old female who notes for evaluation of abnormal cardiac enzymes superimposed upon acute on chronic systolic mediated CHF with a history of a non-CAD related cardiomyopathy, status post biventricular ICD therapy, hyperlipidemia, and hypertension. The patient states she had been doing well until recently. She notes recently she received her COVID-19 booster . She states she has noted that her appetite has been down. She has also noted diffuse body aches. She states she has had increased difficulty breathing both at rest and with exertion. She denies any near-syncope or syncope. She states her ICD has not discharged. Based upon her ongoing symptoms she states she made an appointment with her outpatient PCP group, however, as her symptoms worsened especially with concerns of her breathing, she was subsequently taken by the EMS to her local emergency department in [place], [place]. There she was found, per the emergency department staff physician, to appear dyspneic, hypoxic, and based upon examination and radiologic studies to have evidence of CHF. She was also found to be anemic with a hemoglobin of 8.2. She did have influenza and COVID-19 viral testing performed which was reported as negative. She began treatment with O2 therapy and IV diuretics. She was subsequently transferred to [facility] for further evaluation and care. She states she feels better now than she did on arrival. She was placed in the PCU. She is being monitored. She has remained in an underlying biventricular paced rhythm. She has had cardiac enzymes performed. They were listed as abnormal at her local emergency department and subsequently have continued to increase. Her ECG demonstrated an electronic biventricular paced rhythm. She did have repeat laboratory studies performed which also confirmed her anemia with a hemoglobin of 8.4 and a hematocrit of 26.1. Her BUN and creatinine levels were noted to be somewhat elevated as well. She recently underwent a follow-up transthoracic echocardiogram on 07-14-2021. The results are noted below. Based upon that study her medications had been altered with respect to her afterload reducing agents from previously being on irbesartan to a change to Entresto with plans to monitor her left ventricular wall motion and systolic function in future for any potential benefit based upon the change in the afterload reducing agents. [facility] Medical History (Updated 08/04/21 @ 19:[address] Fernandez Hernandez MD) Abnormal cardiac enzyme level Anemia Biventricular implantable cardioverter-defibrillator (ICD) in situ Cardiomyopathy Chest pain CHF (congestive heart failure) Dilated cardiomyopathy Essential hypertension GERD (gastroesophageal reflux disease) Hyperlipidemia Hypertension Hypertension Irregular heart beat Non-smoker Nonrheumatic aortic valve disorder Pacemaker Renal insufficiency Thalassemia minor Home Medications omega-3 fatty acids 1,000 mg capsule 1,000 mg PO DAILY 09/09/18 [History Last Taken Unknown] famotidine 20 mg tablet 20 mg PO DAILY 01/16/19 [History Last Taken 08/03/21] coenzyme Q10 100 mg capsule 100 mg PO DAILY 12/17/19 [History Last Taken 08/03/21] hyoscyamine sulfate 0.125 mg sublingual tablet 0.125 mg PO BID PRN PRN tablet 07/26/20 [History Last Taken Unknown] phenazopyridine 100 mg tablet 100 mg PO TID PRN 07/26/20 [History Last Taken Unknown] carvedilol 25 mg tablet 25 mg PO BID #180 tab 08/05/20 [Rx Last Taken 08/04/21] hydrochlorothiazide 25 mg tablet 12.5 mg PO DAILY tab 02/01/21 [History Last Taken 08/04/21] simvastatin 20 mg tablet 20 mg PO QHS #90 tab 02/01/21 [Rx Last Taken 08/04/21] albuterol sulfate 90 mcg/actuation aerosol inhaler 2 puff INHALATION Q4H PRN g 06/23/21 [History Last Taken 08/04/21] fluticasone propionate 50 mcg/actuation nasal spray,suspension 2 spray INTRANASAL DAILY 06/23/21 [History Last Taken 08/04/21] multivitamin 1 tab PO DAILY 06/23/21 [History Last Taken 08/03/21] Al hyd-Mg tr-alg ac-sod bicarb [Gaviscon] 1 tab PO DAILY PRN PRN 08/04/21 [History Last Taken Unknown] budesonide-formoterol [Symbicort] 2 puff INHALATION BID 08/04/21 [History Last Taken 08/03/21] cholecalciferol (vitamin D3) [Vitamin D3] 50 mcg PO DAILY 08/04/21 [History Last Taken 08/04/21] sacubitril-valsartan [Entresto] 1 tab PO BID 08/04/21 [History Last Taken 08/04/21] Allergy/AdvReac Type Severity Reaction Status Date / Time amoxicillin Allergy Unknown unknown Verified 06/23/21 10:27 SALENA Inhibitors Allergy Unknown Verified 07/26/20 10:47 cefdinir [From Omnicef] Allergy Unknown Verified 07/26/20 10:47 cephalexin Allergy Unknown Verified 07/26/20 10:47 clarithromycin [From Biaxin] Allergy Unknown Verified 07/26/20 10:47 codeine Allergy Unknown Verified 07/26/20 10:47 fosinopril sodium Allergy Unknown Verified 07/26/20 10:47 [From Monopril] lansoprazole [From Prevacid] Allergy Unknown Verified 07/26/20 10:47 meperidine HCl [From Demerol] Allergy Unknown Verified 07/26/20 10:47 omeprazole [From Prilosec] Allergy Unknown Verified 07/26/20 10:47 omeprazole magnesium Allergy Unknown Verified 07/26/20 10:47 [From Prilosec] pseudoephedrine HCl Allergy Unknown Verified 07/26/20 10:47 [From Sudafed] rabeprazole sodium Allergy Unknown Verified 07/26/20 10:47 [From Aciphex] Surgical History (Updated 08/04/21 @ 16:02 by Silva Hsieh) History of bone marrow biopsy History of cholecystectomy Social History Smoking Status: Never smoker ROS Constitutional Constitutional: Reports as per HPI Eyes Eyes: Reports as per HPI ENT HEENT: Reports as per HPI Cardiovascular Cardiovascular: Reports chest pain, dyspnea, dyspnea at rest and dyspnea on exertion Respiratory/Chest Respiratory/Chest: Reports dyspnea and dyspnea on exertion Gastrointestinal Gastrointestinal: Reports as per HPI Genitourinary Genitourinary: Reports as per HPI Musculoskeletal Musculoskeletal: Reports joint pain Integumentary Integumentary: Reports as per HPI Neurologic Neurologic: Reports as per HPI Psychiatric Psychiatric: Reports as per HPI Physical Exam Narrative This is an 86-year-old female wearing O2 nasal cannula who appears to be resting reasonably comfortably at the moment and no acute distress Const alert and oriented x3 Orientation / Consciousness: awake HEENT normocephalic, head/scalp atraumatic and hearing grossly normal bilaterally Eyes PERRL and EOMs intact bilaterally Neck full ROM and supple Resp Auscultation: rales bilateral lower Cardio regular rate, regular rhythm, S1 normal heart sound and S2 normal heart sound Heart Sounds: murmur systolic II/ harsh mid left sternal border and LVOT GI normal to inspection, nondistended, normoactive bowel sounds Extremity no pedal edema Skin no rashes or lesions noted Neuro oriented x3, moves all extremities, no focal motor deficits and no sensory deficits noted Psych mental status grossly normal Risk Stratification Risk Stratification Applicable: Yes Age >/= 65: Yes >/= 3 CAD Risk Factors (HTN, HLD, DM, family hx of CAD, or current smoker): No Aspirin Use in the Past 7 Days: No Severe Angina (>/= episodes in 24 hours): No EKG ST Changes >/= 0.5mm: No Positive Cardiac Marker: Yes IMELDA Risk Stratification Score: 2 IMELDA % Risk: 8% Risk Procedure Criteria Type of Procedure Procedure Type: Elective Elective Risks - COVID COVID Risk Discussion: The surgeon/proceduralist and patient have discussed in detail the risk of exposure to and/or potential harm posed by the COVID-19 virus with having a surgery/procedure at this time versus the risk of delaying the surgery/procedure. It is not possible to know either the risk of delaying the surgery or procedure or chance of getting an infection with perfect accuracy, but a joint decision was made between the patient and the surgeon/proceduralist to proceed at this time with the scheduled surgery/procedure as indicated on the consent form. Objective Data Vital Signs: Vital Signs Temp Pulse Resp BP Pulse Ox 98 F 92 16 150/83 H 97 08/04/21 16:04 08/04/21 16:04 08/04/21 16:04 08/04/21 16:04 08/04/21 16:04 Oxygen Flow Rate (L/min) 2 Oxygen Delivery Method Nasal Cannula Weight: 131 lb 4.8 oz Body Mass Index (BMI) 24.7 Intake & Output: Intake and Output for Last 24 Hours 08/02/21 08/03/21 08/04/21 23:59 23:59 23:59 Intake Total 200 / 200 Balance 200 / 200 Lab / Micro Data Result Diagrams: 08/04/21 16:30 08/04/21 18:05 Labs: Laboratory Results - last 24 hr 08/04/21 16:30: Troponin I High Sens 345 H* 08/04/21 16:30: WBC 8.3, RBC 4.20, Hgb 8.4 L, Hct 26.1 L, MCV 62.1 L, MCH 20.0 L, MCHC 32.2, RDW Std Deviation 35.6, RDW Coeff of Catina 16.5 H, Plt Count 184, MPV TNP, Immature Gran % (Auto) 0.800, Neut % (Auto) 87.5 H, Lymph % (Auto) 9.8 L, [place] % (Auto) 1.6, Eos % (Auto) 0.1, Baso % (Auto) 0.2, Absolute Neuts (auto) 7.3, Absolute Lymphs (auto) 0.81 L, Nucleated RBC % 0.2 08/04/21 18:05: Sodium 140, Potassium 3.8, Chloride 106, Carbon Dioxide 23.0, Anion Gap 11, BUN 30 H, Creatinine 1.80 H, Estim Creat Clear Calc 17.56, Est GFR (MDRD) Af Amer 34 L, Est GFR (MDRD) Non-Af 29 L, BUN/Creatinine Ratio 16.7, Glucose 211 H, Calcium 8.5, Troponin I High Sens 379 H* Cardiology Labs/Tests 08/04/21 16:30: WBC 8.3, RBC 4.20, Hgb 8.4 L, Hct 26.1 L, MCV 62.1 L, MCH 20.0 L, MCHC 32.2, Plt Count 184, MPV TNP, Immature Gran % (Auto) 0.800, Neut % (Auto) 87.5 H, Lymph % (Auto) 9.8 L, [place] % (Auto) 1.6, Eos % (Auto) 0.1, Baso % (Auto) 0.2, Absolute Neuts (auto) 7.3, Nucleated RBC % 0.2 08/04/21 18:05: Sodium 140, Potassium 3.8, Chloride 106, Carbon Dioxide 23.0, Anion Gap 11, BUN 30 H, Creatinine 1.80 H, Est GFR (MDRD) Af Amer 34 L, Est GFR (MDRD) Non-Af 29 L, BUN/Creatinine Ratio 16.7, Glucose 211 H, Calcium 8.5 Rhythm: EKG: Echocardiogram: 09/09/2018 Interpretation Summary Mildly dilated left ventricle. Moderate segmental systolic dysfunction (see wall motion). The estimated ejection fraction is 30 %. There is mild mitral annular calcification. Extension of the mitral annular calcification onto the mitral valve leaflet. Trivial mitral valve insufficiency. Trivial tricuspid valve insufficiency. Moderate focal aortic valve calcification. Right ventricular systolic pressure estimated to be 26 mmHg. Diastolic function is indeterminate. ICD or pacer leads identified within the right atrium ICD or pacer leads identified within the right ventricle. 2D echocardiographic images demonstrate a small mobile somewhat calcified appearing echodensity appearing below the aortic valve apparatus of uncertain etiology with a differential diagnosis including, but not all inclusive of, a prominent Lambl's Exrecence, papillary fibroelastoma, vegetation, etc., cannot be excluded. Comment: C/W the previous TTE of 08/27/2015 there are similar type findings. Echocardiogram: 07-14-2021 Interpretation Summary The study was technically difficult. Mildly dilated left ventricle. Severe segmental systolic dysfunction (see wall motion). The estimated ejection fraction is 25 %. The left atrium is mildly enlarged. There is mild to moderate mitral annular calcification. Extension of the mitral annular calcification onto the base of the posterior mitral valve leaflet. Mild (1+) mitral valve insufficiency. Trivial tricuspid valve insufficiency. Right ventricular systolic pressure estimated to be 60 mmHg. Transmitral diastolic flow velocities suggest diastolic dysfunction (pseudonormal pattern). ICD or pacer leads identified within the right atrium ICD or pacer leads identified within the right ventricle. 2D echocardiographic images demonstrate a small mobile somewhat calcified appearing echodensity appearing below the aortic valve apparatus of uncertain etiology with a differential diagnosis including, but not all inclusive of, a prominent Lambl's Exrecence, papillary fibroelastoma, vegetation, etc., cannot be excluded. Comment: C/W the previous TTE of 01/21/2019 there are similar type findings. Stress Test Report Date: 10/11/2017 Procedure: Pharmacologic stress nuclear imaging study Indications: Chest pain NM: Non-CAD related cardiomyopathy; ICD Consent: Per the patient Procedure: The patient underwent pharmacologic (Regadenoson) evaluation with a peak heart rate of 104 beats per minute (74 predicted maximal heart rate) and a peak blood pressure of 158/90 mmHg. The baseline ECG demonstrated electronic ventricular paced rhythm. The peak pharmacologic ECG demonstrated electronic ventricular paced rhythm. There were occasional PVCs pretest, during infusion, and recovery. [There was no complaint of chest discomfort during pharmacologic infusion or recovery]. The examination was discontinued secondary to completion of protocol. Impression: 1. Pharmacologic (Regadenoson) evaluation 2. Peak pharmacologic ECG with a continued electronic ventricular paced rhythm. 3. There were occasional PVCs pretest, during infusion, and recovery 4. Nuclear images pending Myocardial perfusion imaging study: Technique: The patient was injected with 11.7 millicuries of technetium 99m Cardiolite and subsequently rest SPECT Cardiolite nuclear imaging was obtained in the horizontal long, vertical long, and short axis views. The patient underwent pharmacologic (Regadenoson) evaluation with a peak heart rate of 104 beats per minute (74 % percent predicted maximal heart rate) and a peak blood pressure of 158/90 mmHg. The patient was injected with 33.3 millicuries of technetium 99m Cardiolite and subsequently stress SPECT Cardiolite nuclear imaging was obtained in the horizontal long, vertical long, and short axis views. A gated Cardiolite study at peak stress was obtained. Interpretation: Rest and stress SPECT Cardiolite nuclear imaging status post realignment, normalization, and attenuation correction demonstrate dense of diminished absence of myocardial perfusion/tracer uptake in the apical areas without significant change between rest and stress. There is diminished end systolic thickening and brightening especially in the apical areas. The gated Cardiolite study demonstrates diminished myocardial thickening and inward wall motion especially in the apical areas. The reported LVEF is 29 %. Impression: 1. Rest and stress SPECT Cardiolite nuclear imaging demonstrating diminished myocardial perfusion/tracer uptake in the apical areas without significant change between rest and stress potentially compatible with an area of previous myocardial injury/infarction with no obvious myocardial perfusion changes consider diagnostic for associated stress-induced myocardial ischemia. 2. The gated Cardiolite study reports an LVEF of 29%.
[2021-08-04 19:00] VITALS: PULSE 94
[2021-08-04 19:23] VITALS: O2SAT 96
[2021-08-04 22:15] VITALS: BP 136/76; PULSE 87; RESP 18; TEMP 36.8; O2SAT 98
[2021-08-04] MEDS: Carvedilol 25 MG Tablet PO (22:46)
[2021-08-04] MEDS: Atorvastatin Calcium 10 MG Tablet PO (22:46)
[2021-08-04] MEDS: SACUBITRIL/VALSARTAN 24/26 MG TABLET 1 EACH PO (22:46)
[2021-08-05] VITALS (23 sets, daily range): BP systolic 105–141; BP diastolic 49–85; PULSE 68–98; RESP 16–20; TEMP 36.3–36.9; O2SAT 94–99
[2021-08-05 00:02] LABS: Troponin-I HS 385 pg/mL (3.0-54.0)
--- NOTE | 2021-08-05 00:15 | PCM.HOSP.N ---
Hospitalist Note 3rd troponin 385, mildly increased. Will add ASA with dose now and 81 mg daily, FLP in AM and add mag to initial ED labs. Dr. Hernandez has already seen and per his report will not request repeat ECHO as recently performed unless notable change on catheterization planned and will defer alteration to lovenox dosing as he was aware of this level and did not request alteration.
[2021-08-05] MEDS: Aspirin 325 MG Tablet PO (00:27)
[2021-08-05 00:42] LABS: Magnesium 1.9 mg/dL (1.6-2.6)
--- NOTE | 2021-08-05 05:00 | RAD_ITS ---
EXAM: XR CHEST, 1 VIEW CLINICAL INDICATION: CHF TECHNIQUE: Frontal view of the chest. This report was created using [employer] report generation technology. COMPARISON: 09/09/2018. FINDINGS: LIMITATIONS: The exam is somewhat limited due to RPO rotation. LUNGS AND PLEURAL SPACES: Patchy opacity right lower lung obscuring the right heart border may be due to consolidation/pneumonia in the right middle lobe. No pneumothorax. No effusion. HEART: Stable mild cardiomegaly. MEDIASTINUM: Central airways and mediastinal contour are unremarkable. BONES/JOINTS: Unremarkable. SOFT TISSUES: Unremarkable. TUBES, LINES AND DEVICES: No change AICD pacemaker. RAD/Chest 1 View (Portable) IMPRESSION: 1. Patchy opacity right lower lung obscuring the right heart border may be due to consolidation/pneumonia in the right middle lobe. 2. Stable mild cardiomegaly. Electronically Signed: Bryn Moyer MD at 0:33 EDT ,
[2021-08-05] MEDS: Carvedilol 25 MG Tablet PO ×2 (06:18→22:14)
[2021-08-05] MEDS: SACUBITRIL/VALSARTAN 24/26 MG TABLET 1 EACH PO ×2 (06:18→22:14)
[2021-08-05] MEDS: Aspirin 81 MG TAB.CHEW PO (06:18)
[2021-08-05 06:56] LABS: Absolute Neutrophil Count 6.9 X10^3/uL (2.0-7.7); Hematocrit 25.8 % (37-47); Hemoglobin 8.2 g/dL (12.0-15.0); Lymphocyte % 11.1 % (19-41); Mean Corp Hgb Conc 31.8 g/dL (32-36); Mean Corpuscular Hgb 19.4 pg (27.0-32.0); Mean Corpuscular Volume 61.1 fL (81-99); Monocyte# 0.23 X10^3/uL; Monocyte% 2.8 % (0-10); NRBC Flagged by Analyzer 0 % (0-5); Neutrophil # 6.91 X10^3/uL (2.7-7.7); Neutrophil % 85.4 % (47-70); Platelet Count 194 K/mm3 (150-450); RBC Distribution Width CV 16.7 % (11.6-14.6); RBC Distribution Width SD 35.5 fl (35.1-43.9); Red Blood Count 4.22 M/mm3 (4.2-5.4); White Blood Count 8.1 K/mm3 (4.4-11.0)
[2021-08-05 07:23] LABS: Anion Gap 8 (5-15); BUN 39 mg/dL (7-18); BUN/Creat Ratio 18.9 RATIO (10-20); Calcium,Total 8.6 mg/dL (8.5-10.1); Chloride 105 mmol/L (98-107); Creatinine, Serum 2.06 mg/dL (0.55-1.02); EST Glomerular Filtration Rate 24 mL/min (>60); Est Glom Filt Rate - Afr Amer 30 mL/min (>60); Estimated Creatinine Clearance 15.34 ml/min; Glucose 154 mg/dL (74-106); Potassium 3.7 mmol/L (3.5-5.1); Sodium Level 139 mmol/L (136-145)
[2021-08-05 07:30] LABS: Cholesterol 147 mg/dL (200); High Density Lipoprotein 68 mg/dL; Triglycerides 50 mg/dL; Very Low Density Lipoprotein 10 mg/dL (5-40)
[2021-08-05] MEDS: 0.9% Normal Saline 1,000 ML 15 ML IV (07:30)
--- NOTE | 2021-08-05 07:34 | PCM.PN.CARD ---
Subjective Subjective The patient is awake and alert. She states her breathing has improved. She is able to lie supine at this time. Objective Data Vital Signs: Vital Signs Temp Pulse Resp BP Pulse Ox 97.8 F 91 18 119/65 99 08/05/21 06:13 08/05/21 06:13 08/05/21 06:13 08/05/21 06:13 08/05/21 06:13 Oxygen Flow Rate (L/min) 2 Oxygen Delivery Method Nasal Cannula Weight: 129 lb 13.636 oz Body Mass Index (BMI) 24.7 Intake & Output: Intake and Output for Last 24 Hours 08/03/21 08/04/21 08/05/21 23:59 23:59 23:59 Intake Total 320 / 320 Balance 320 / 320 Lab / Micro Data Result Diagrams: 08/05/21 06:35 08/05/21 06:35 Labs: Laboratory Results - last 24 hr 08/04/21 16:30: Troponin I High Sens 345 H* 08/04/21 16:30: WBC 8.3, RBC 4.20, Hgb 8.4 L, Hct 26.1 L, MCV 62.1 L, MCH 20.0 L, MCHC 32.2, RDW Std Deviation 35.6, RDW Coeff of Catina 16.5 H, Plt Count 184, MPV TNP, Immature Gran % (Auto) 0.800, Neut % (Auto) 87.5 H, Lymph % (Auto) 9.8 L, [place] % (Auto) 1.6, Eos % (Auto) 0.1, Baso % (Auto) 0.2, Absolute Neuts (auto) 7.3, Absolute Lymphs (auto) 0.81 L, Nucleated RBC % 0.2 08/04/21 18:05: Sodium 140, Potassium 3.8, Chloride 106, Carbon Dioxide 23.0, Anion Gap 11, BUN 30 H, Creatinine 1.80 H, Estim Creat Clear Calc 17.56, Est GFR (MDRD) Af Amer 34 L, Est GFR (MDRD) Non-Af 29 L, BUN/Creatinine Ratio 16.7, Glucose 211 H, Calcium 8.5, Troponin I High Sens 379 H* 08/04/21 22:27: Troponin I High Sens 385 H* 08/04/21 22:27: Magnesium 1.9 08/05/21 06:35: WBC 8.1, RBC 4.22, Hgb 8.2 L, Hct 25.8 L, MCV 61.1 L, MCH 19.4 L, MCHC 31.8 L, RDW Std Deviation 35.5, RDW Coeff of Catina 16.7 H, Plt Count 194, Immature Gran % (Auto) 0.700, Neut % (Auto) 85.4 H, Lymph % (Auto) 11.1 L, [place] % (Auto) 2.8, Eos % (Auto) 0.0, Baso % (Auto) 0.0, Absolute Neuts (auto) 6.9, Absolute Lymphs (auto) 0.90, Nucleated RBC % 0 08/05/21 06:35: Sodium 139, Potassium 3.7, Chloride 105, Carbon Dioxide 26.0, Anion Gap 8, BUN 39 H, Creatinine 2.06 H, Estim Creat Clear Calc 15.34, Est GFR (MDRD) Af Amer 30 L, Est GFR (MDRD) Non-Af 24 L, BUN/Creatinine Ratio 18.9, Glucose 154 H, Calcium 8.6 08/05/21 06:35: Triglycerides 50, Cholesterol 147, LDL Cholesterol 69, VLDL Cholesterol 10, HDL Cholesterol 68 Cardiology Labs/Tests 08/04/21 16:30: WBC 8.3, RBC 4.20, Hgb 8.4 L, Hct 26.1 L, MCV 62.1 L, MCH 20.0 L, MCHC 32.2, Plt Count 184, MPV TNP, Immature Gran % (Auto) 0.800, Neut % (Auto) 87.5 H, Lymph % (Auto) 9.8 L, [place] % (Auto) 1.6, Eos % (Auto) 0.1, Baso % (Auto) 0.2, Absolute Neuts (auto) 7.3, Nucleated RBC % 0.2 08/04/21 18:05: Sodium 140, Potassium 3.8, Chloride 106, Carbon Dioxide 23.0, Anion Gap 11, BUN 30 H, Creatinine 1.80 H, Est GFR (MDRD) Af Amer 34 L, Est GFR (MDRD) Non-Af 29 L, BUN/Creatinine Ratio 16.7, Glucose 211 H, Calcium 8.5 08/04/21 22:27: Magnesium 1.9 08/05/21 06:35: WBC 8.1, RBC 4.22, Hgb 8.2 L, Hct 25.8 L, MCV 61.1 L, MCH 19.4 L, MCHC 31.8 L, Plt Count 194, Immature Gran % (Auto) 0.700, Neut % (Auto) 85.4 H, Lymph % (Auto) 11.1 L, [place] % (Auto) 2.8, Eos % (Auto) 0.0, Baso % (Auto) 0.0, Absolute Neuts (auto) 6.9, Nucleated RBC % 0 08/05/21 06:35: Sodium 139, Potassium 3.7, Chloride 105, Carbon Dioxide 26.0, Anion Gap 8, BUN 39 H, Creatinine 2.06 H, Est GFR (MDRD) Af Amer 30 L, Est GFR (MDRD) Non-Af 24 L, BUN/Creatinine Ratio 18.9, Glucose 154 H, Calcium 8.6 08/05/21 06:35: Triglycerides 50, Cholesterol 147, LDL Cholesterol 69, VLDL Cholesterol 10, HDL Cholesterol 68 Rhythm: Biventricular pacemaker Physical Exam Narrative This is an 86-year-old female wearing O2 nasal cannula who appears to be resting reasonably comfortably at the moment and no acute distress Const alert and oriented x3 Orientation / Consciousness: awake HEENT normocephalic, head/scalp atraumatic and hearing grossly normal bilaterally Eyes PERRL and EOMs intact bilaterally Neck full ROM and supple Resp Auscultation: rales bilateral lower (Improved compared to the previous examination) Cardio regular rate, regular rhythm, S1 normal heart sound and S2 normal heart sound Heart Sounds: murmur systolic II/ harsh mid left sternal border and LVOT GI normal to inspection, nondistended, normoactive bowel sounds Extremity no pedal edema Skin no rashes or lesions noted Neuro oriented x3, moves all extremities, no focal motor deficits and no sensory deficits noted Psych mental status grossly normal Assessment & Plan Assessment/Plan (1) Abnormal cardiac enzyme level: PLAN: The patient has abnormal cardiac enzyme levels. 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 The patient will continue her evaluation with diagnostic cardiac catheterization to reassess her coronary anatomy in the midst of her abnormal cardiac enzymes raising concerns of the development and/or progression of CAD superimposed upon concerns of her acute on chronic systolic mediated CHF event as well. She will continue medical management as deemed appropriate. 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 She has undergone recent noninvasive evaluation with a transthoracic echocardiogram which is demonstrated her continued diminished LV systolic function/LVEF. At the moment she will continue medical therapy which does include IV furosemide/Lasix therapy. She will also have follow-up laboratory studies and radiologic studies. (3) Dilated cardiomyopathy: PLAN: The patient has a history of a non-CAD related dilated cardiomyopathy. She has been treated medically in the past and has done well/remained stable for some time now. She also has a biventricular ICD in place. Unfortunately her LV systolic function has not improved over time based upon her recent echocardiographic studies. She will continue medical therapy and further evaluation as deemed appropriate. This may include over time the addition of furosemide to her regimen based upon this event as well as potentially the advancement of her afterload reducing therapy such as Entresto as well as potentially addition of other agents such as SGLT2I agents-all as tolerated. 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 It has been monitored in the past and has been functioning appropriately. (5) Hyperlipidemia: QUALIFIERS: Hyperlipidemia type: unspecified Qualified Code(s): E78.5 - Hyperlipidemia, unspecified PLAN: The patient should continue risk factor evaluation care. (6) Essential hypertension: PLAN: The patient's blood pressure needs to be monitored and her medications adjusted taking into consideration her other comorbidities, etc. (7) Anemia: PLAN: The patient also has a history of anemia. Her hemoglobin is low. Is unclear as to whether or not this is contributing to her acute situation. Her hemoglobin will need to be monitored and depending upon the findings she may require additional evaluation and/or care with PRBC transfusions. (8) Renal insufficiency: PLAN: The patient also has an element of renal insufficiency. Her BUN and creatinine have increased. This may be secondary to her acute on chronic systolic mediated CHF event as well as contribution from her IV diuresis and her fluid shifts. Her renal function will need to be followed. Addt'l Comments The above was discussed with the patient. She was agreeable to this approach. This note was generated using a voice recognition system and there may be incorrect words, spelling or punctuation that were not noted when reviewing the office note prior to saving. Procedure Criteria Type of Procedure Procedure Type: Elective Elective Risks - COVID COVID Risk Discussion: The surgeon/proceduralist and patient have discussed in detail the risk of exposure to and/or potential harm posed by the COVID-19 virus with having a surgery/procedure at this time versus the risk of delaying the surgery/procedure. It is not possible to know either the risk of delaying the surgery or procedure or chance of getting an infection with perfect accuracy, but a joint decision was made between the patient and the surgeon/proceduralist to proceed at this time with the scheduled surgery/procedure as indicated on the consent form.
--- NOTE | 2021-08-05 08:40 | CL.D_ITS ---
Patient Name: NATASHA DAVIDSON Study Date: 08/05/2021 Performing: Fernandez Hernandez MD Ht: 61 inches 155 cm : 1935 Wt: 130.2 lbs 59 kg Age: 86 Gender: female BSA: 1.57 PROCEDURE(S) PERFORMED DC02-(29950)C/COR CLINICAL PROFILE AND INDICATIONS Indications: LV Dysfunction, Cardiomyopathy Heart Failure: NYHA Class: 3, Newly Diagnosed: No, Heart Failure Type: Systolic Stress/Imaging Stress/Image Study Performed: No Angina Classification Anginal Classification w/in 2 Weeks: Anginal Equivalent Dyspnea CAD Presentations: Non-STEMI. CONCLUSIONS Normal coronary arteries RECOMMENDATIONS Risk factor modification Medical therapy DESCRIPTION OF PROCEDURE The patient arrived to the procedure lab. The risks and benefits of the procedure as well as a full d escription of our services here and current unavailability of surgical backup were fully explained to the patient and/or their significant other prior to the catheterization. The Timeout was completed, verifying the correct patient and procedure. The patient's procedural site was prepped and draped in the usual fashion. Local anesthetic was given subcutaneously to right radial region with Lidocaine 2% . Using a modified Seldinger technique, arterial access was obtained via the right radial artery, a 6 Fr sheath was inserted. Right Coronary Artery selective angiography was then performed in multiple v iews using a 5 Fr. 4.0 [place] catheter. Left Coronary Artery selective angiography was performed in mu ltiple views using a 5 Fr. 4.0 [place] catheter.The arterial sheath was pulled and a TR Band was applie d for hemostasis CORONARY ANGIOGRAPHY LEFT HEART ASSESSMENT Left Ventricular Ejection Fraction: Not assessed LEFT MAIN: Angiographically normal LEFT ANTERIOR DESCENDING ARTERY: Angiographically normal CIRCUMFLEX ARTERY: Angiographically normal RIGHT CORONARY ARTERY: Angiographically normal COMPLICATIONS No Complications PROCEDURE MEDICATIONS Versed 1 mg IV Fentanyl 50 mcg IV Oxygen: 2 L/min via nasal cannula Heparin given IA 08/05/2021 08:10:52 Verapamil 2.5mg, Ntg 100mcgs, 3000 units of Heparin given IA 08/05/2021 08:10:52 SUMMARY OF HEMODYNAMIC DATA Time AIR REST ECG 07:44:20 AO 106/45 (69) SA 08:07:25 Signed By Fernandez Hernandez MD On 08/05/2021 08:39:38 Fernandez Hernandez MD
[2021-08-05] MEDS: Fluticasone 0.05% 1 SPRAY NASAL.SRY 2 SPRAY NASAL (08:57)
[2021-08-05] MEDS: 0.9% Normal Saline 1,000 ML 50 ML IV (08:57)
[2021-08-05] MEDS: Cholecalciferol (VIT D3) 25 MCG TABLET (1,000 UNITS) 50 MCG PO (08:58)
[2021-08-05] MEDS: Multivitamins,Therapeutic Tablet 1 TABLET PO (08:58)
[2021-08-05] MEDS: Famotidine 20 MG Tablet PO (08:58)
[2021-08-05] MEDS: Omega-3 Acid Ethyl Esters 1 GM Capsule PO (08:58)
[2021-08-05] MEDS: Furosemide 20 MG/2 ML VIAL IV ×2 (08:59→17:49)
--- NOTE | 2021-08-05 10:15 | CASEMGMT ---
SAE QUINONES assessment: Face to Face with patient for initial transition planning/care coordination assessment. SAE QUINONES introduced self and role at [facility], pt voices understanding and consents to assessment. Pt is sitting up in bed in no distress on room air. Pt is A/Ox4 and answers all questions appropriately. Care providers, pharmacy, and demographics verified/updated. Presentation: Pt was a direct admit from [facility] for SOB and elev trop Admitting dx: CHF, pna PCP: [facility] Specialists: None Preferred Pharmacy: [facility] Insurance: MCR A/B, [employer] Prescription Benefit: Yes Living Will/HPOA: Pt states has LW/HPOA and is aware that they are not on file at [facility]. Pt states her daughter, Lindsey Nassar, is HPOA. LNOK: Lindsey Nassar, daughter/HPOA Living Arrangements: Pt lives alone in 2 story home and states no concerns at home. Pt is independent with ADL's. Transportation: Pt drives self and states no transportation concerns. DME/HHC: Pt has a grab bars and chair lift and states no further need for DME. Pt states no hx of HHC or SNF in the past. Pt states no concerns with going home at time of discharge. Pt is retired. Pt states does not smoke cigarettes or drink ETOH. Pt voices no further concerns/needs. CM to follow for any further discharge planning/needs. Advised pt to ask for CM if any further questions/concerns/needs arise, voices understanding. Pt Goal: Home Plan[place] SAE QUINONES
--- NOTE | 2021-08-05 12:23 | CHAPLAIN ---
Type of Pastoral Visit _x__ Initial Visit ___ Follow-up Visit ___ On-call Visit ___ General Patient Visit ___ Spiritual Assessment ___ Family Conference ___ Bereavement ___ Rapid Response ___ Code Blue ___ Other (describe below) Pastoral Care Referral From _x__ Patient ___ Family ___ Nurse ___ Physician ___ Barrel Bridge Assembler ___ Color Control Operator ___ Other (describe below) Sacrament/Intervention _x__ Active listening ___ Anointing ___ Restoration ___ Bereavement ___ Communion _x__ Cristina exploration ___ _x__ Life review _x__ Prayer ___ Reconciliation ___ Sacrament of Sick _x__ Supportive presence ___ Wedding ___ Other (describe below) Pastoral Comments patient had many questions about God and spiritual matters; pt had opportunity to express herself and her questions; pt asked for another visit; prayer and presence
--- NOTE | 2021-08-05 12:24 | PN.HOSP_ITS ---
Subjective Subjective Patient seen and examined. She had no complaitns today. Tammie bereathing had improved and sh felt much better. She had cardiac cath this morning which showed patent vessels. Objective Data Objective Data Vital Signs: Vital Signs Temp Pulse Resp BP Pulse Ox 97.4 F L 77 18 105/61 94 08/05/21 12:04 08/05/21 12:04 08/05/21 12:04 08/05/21 12:04 08/05/21 12:04 Oxygen Flow Rate (L/min) 2 Oxygen Delivery Method Room Air Weight: 129 lb 13.636 oz Body Mass Index (BMI) 24.7 Intake & Output: Intake and Output for Last 24 Hours 08/03/21 08/04/21 08/05/21 23:59 23:59 23:59 Intake Total 320 / 320 321.5 / 321.5 Balance 320 / 320 321.5 / 321.5 Lab / Micro Data Result Diagrams: 08/05/21 06:35 08/05/21 06:35 Labs: Laboratory Results - last 24 hr 08/04/21 16:30: Troponin I High Sens 345 H* 08/04/21 16:30: WBC 8.3, RBC 4.20, Hgb 8.4 L, Hct 26.1 L, MCV 62.1 L, MCH 20.0 L , MCHC 32.2, RDW Std Deviation 35.6, RDW Coeff of Catina 16.5 H, Plt Count 184, MPV TNP, Immature Gran % (Auto) 0.800, Neut % (Auto) 87.5 H, Lymph % (Auto) 9.8 L, [place] % (Auto) 1.6, Eos % (Auto) 0.1, Baso % (Auto) 0.2, Absolute Neuts (auto) 7.3, Absolute Lymphs (auto) 0.81 L, Nucleated RBC % 0.2 08/04/21 18:05: Sodium 140, Potassium 3.8, Chloride 106, Carbon Dioxide 23.0, Anion Gap 11, BUN 30 H, Creatinine 1.80 H, Estim Creat Clear Calc 17.56, Est GFR (MDRD) Af Amer 34 L, Est GFR (MDRD) Non-Af 29 L, BUN/Creatinine Ratio 16.7, Glucose 211 H, Calcium 8.5, Troponin I High Sens 379 H* 08/04/21 22:27: Troponin I High Sens 385 H* 08/04/21 22:27: Magnesium 1.9 08/05/21 06:35: WBC 8.1, RBC 4.22, Hgb 8.2 L, Hct 25.8 L, MCV 61.1 L, MCH 19.4 L , MCHC 31.8 L, RDW Std Deviation 35.5, RDW Coeff of Catina 16.7 H, Plt Count 194, Immature Gran % (Auto) 0.700, Neut % (Auto) 85.4 H, Lymph % (Auto) 11.1 L, [place] % (Auto) 2.8, Eos % (Auto) 0.0, Baso % (Auto) 0.0, Absolute Neuts (auto) 6.9, Absolute Lymphs (auto) 0.90, Nucleated RBC % 0 08/05/21 06:35: Sodium 139, Potassium 3.7, Chloride 105, Carbon Dioxide 26.0, Anion Gap 8, BUN 39 H, Creatinine 2.06 H, Estim Creat Clear Calc 15.34, Est GFR (MDRD) Af Amer 30 L, Est GFR (MDRD) Non-Af 24 L, BUN/Creatinine Ratio 18.9, Glucose 154 H, Calcium 8.6 08/05/21 06:35: Triglycerides 50, Cholesterol 147, LDL Cholesterol 69, VLDL Cholesterol 10, HDL Cholesterol 68 Physical Exam Const alert, oriented x3 and no apparent distress General Appearance: cooperative Exam Limitations: no limitations HEENT normocephalic, head/scalp atraumatic and hearing grossly normal bilaterally Head and Scalp: normocephalic Eyes PERRL, EOMs intact bilaterally and conjunctivae normal Neck no lymphadenopathy, supple and no JVD Resp Resp Narrative: mildly diminished breath sounds bibasally, no wheezes or crackles. On room air Cardio regular rate, regular rhythm, S1 normal heart sound, S2 normal heart sound and no murmurs GI normal to inspection, nondistended, normoactive bowel sounds, soft to palpation, non-tender, non-distended and hepatosplenomegaly Extremity normal to inspection, full ROM and no clubbing, cyanosis or edema Peripheral Pulses: Yes pulses 2+ throughout Skin no rashes or lesions noted Neuro oriented x3, CN's II-XII intact bilaterally and moves all extremities Sensorium / Orientation: awake and alert Psych affect normal Assessment & Plan Assessment/Plan (1) Heart failure: PLAN: #Acute on chronic exacerbation of HFrEF\ * being diuresed with IV lasix * Has a known EF of 25%. * Diuresed with IV Lasix 40 mg twice daily. Monitor intake and output. Fluid restriction to 1500 cc daily. * 2D echo from July 2021 showed mildly dilated left ventricle with severe segmental systolic dysfunction with EF of 25% and RVSP of 60 mmHg as well as diastolic dysfunction and ICD pacer leads identified in the right atrium and right ventricle. * cardiology on board * On Entresto and carvedilol. * * #Nonstemi * troponins were elevated at [facility] at 180; troponins further trended upwards here. * she flor cardiac cath this morning which showed normal coronary arteries. * plan is therefore for medical management * on aspirin, statin and carvedilol * cardiology on board * #History of dilated cardiomyopathy with ICD in place * Follows with Dr. Hernandez. * cardiac cath findings as above * On Entresto and carvedilol as well as statin. * #Hyperlipidemia: On statin DVT prophylaxis: Lovenox CODE STATUS:full code * Charges/Coding Visit Charges Inpatient E&M: 26696 Subs Hosp L2
[2021-08-05] MEDS: Albuterol 2.5 MG/3 ML VIAL.NEB. INHALATION ×2 (12:55→19:48)
[2021-08-05] MEDS: 0.9% Saline Lock 10 ML Syringe IV (17:50)
[2021-08-05] MEDS: Budesonide Respules 0.5 MG/2 ML AMPUL.NEB. INHALATION (19:47)
[2021-08-05] MEDS: Atorvastatin Calcium 10 MG Tablet PO (22:14)
[2021-08-05] MEDS: Hyoscyamine Sulfate 0.125 MG Tablet PO (22:31)
[2021-08-06] VITALS (7 sets, daily range): BP systolic 107–129; BP diastolic 54–63; PULSE 70–75; RESP 14–18; TEMP 36.6–36.7; O2SAT 92–98
[2021-08-06] MEDS: Enoxaparin 30 MG/0.3 ML Syringe SC (05:50)
[2021-08-06 06:08] LABS: Absolute Lymphocyte Count 1.35 X10^3/uL (0.83-4.51); Absolute Neutrophil Count 7.8 X10^3/uL (2.0-7.7); Basophil# 0.01 X10^3/uL; Basophil% 0.1 % (0-1); Hematocrit 23.8 % (37-47); Hemoglobin 7.8 g/dL (12.0-15.0); Lymphocyte # 1.35 X10^3/ul (0.83-4.51); Lymphocyte % 13.8 % (19-41); Mean Corp Hgb Conc 32.8 g/dL (32-36); Mean Corpuscular Hgb 19.9 pg (27.0-32.0); Mean Corpuscular Volume 60.9 fL (81-99); Monocyte# 0.59 X10^3/uL; NRBC Flagged by Analyzer 0 % (0-5); Neutrophil # 7.75 X10^3/uL (2.7-7.7); Neutrophil % 79.5 % (47-70); Platelet Count 191 K/mm3 (150-450); RBC Distribution Width CV 16.4 % (11.6-14.6); RBC Distribution Width SD 35.2 fl (35.1-43.9); Red Blood Count 3.91 M/mm3 (4.2-5.4); White Blood Count 9.8 K/mm3 (4.4-11.0)
[2021-08-06 06:50] LABS: Anion Gap 7 (5-15); BUN 46 mg/dL (7-18); BUN/Creat Ratio 26.7 RATIO (10-20); Chloride 107 mmol/L (98-107); Creatinine, Serum 1.72 mg/dL (0.55-1.02); EST Glomerular Filtration Rate 30 mL/min (>60); Est Glom Filt Rate - Afr Amer 36 mL/min (>60); Estimated Creatinine Clearance 18.37 ml/min; Glucose 115 mg/dL (74-106); Potassium 3.4 mmol/L (3.5-5.1); Sodium Level 141 mmol/L (136-145)
[2021-08-06] MEDS: Albuterol 2.5 MG/3 ML VIAL.NEB. INHALATION ×2 (07:09→13:26)
[2021-08-06] MEDS: Budesonide Respules 0.5 MG/2 ML AMPUL.NEB. INHALATION (07:09)
[2021-08-06] MEDS: Fluticasone 0.05% 1 SPRAY NASAL.SRY 2 SPRAY NASAL (10:08)
[2021-08-06] MEDS: Potassium Chloride Oral Tablet 20 MEQ 40 MEQ PO (10:08)
[2021-08-06] MEDS: Cholecalciferol (VIT D3) 25 MCG TABLET (1,000 UNITS) 50 MCG PO (10:09)
[2021-08-06] MEDS: SACUBITRIL/VALSARTAN 24/26 MG TABLET 1 EACH PO (10:10)
[2021-08-06] MEDS: Famotidine 20 MG Tablet PO (10:10)
[2021-08-06] MEDS: Multivitamins,Therapeutic Tablet 1 TABLET PO (10:10)
[2021-08-06] MEDS: Omega-3 Acid Ethyl Esters 1 GM Capsule PO (10:10)
[2021-08-06] MEDS: Carvedilol 25 MG Tablet PO (10:10)
[2021-08-06] MEDS: Furosemide 20 MG/2 ML VIAL IV (10:10)
[2021-08-06] MEDS: 0.9% Saline Lock 10 ML Syringe IV (10:10)
[2021-08-06] MEDS: Aspirin 81 MG TAB.CHEW PO (10:10)
--- NOTE | 2021-08-06 10:18 | DS.PCM_ITS ---
Providers Date of Admission: 08/04/21 Primary Care Physician: Dr. Amadou Nye MD Consultations 08/04/21 17:17 Consult: Cardiology Routine Consulting Provider: Fernandez Hernandez Reason for Consult: elevated troponins EMERGENT Consult: No MD Notified: Yes Date Notified: 08/04/21 Time Notified: 17:17 Method of Notification: Per Dr. Still Reason For Visit: CHF/PNEUMONIA Diagnosis Discharge Diagnosis (1) Heart failure: Status: Acute Code(s): I50.9 - Heart failure, unspecified (2) NSTEMI, initial episode of care: Status: Acute Code(s): I21.4 - Non-ST elevation (NSTEMI) myocardial infarction Medications at Discharge Home Medications omega-3 fatty acids 1,000 mg capsule 1,000 mg PO DAILY 09/09/18 famotidine 20 mg tablet 20 mg PO DAILY 01/16/19 coenzyme Q10 100 mg capsule 100 mg PO DAILY 12/17/19 hyoscyamine sulfate 0.125 mg sublingual tablet 0.125 mg PO BID PRN PRN tablet 07/26/20 phenazopyridine 100 mg tablet 100 mg PO TID PRN 07/26/20 carvedilol 25 mg tablet 25 mg PO BID #180 tab 08/05/20 simvastatin 20 mg tablet 20 mg PO QHS #90 tab 02/01/21 albuterol sulfate 90 mcg/actuation aerosol inhaler 2 puff INHALATION Q4H PRN g 06/23/21 fluticasone propionate 50 mcg/actuation nasal spray,suspension 2 spray INTRANASAL DAILY 06/23/21 multivitamin 1 tab PO DAILY 06/23/21 Entresto 1 tab PO BID 08/04/21 Gaviscon 1 tab PO DAILY PRN PRN 08/04/21 budesonide-formoterol [Symbicort] 2 puff INHALATION BID 08/04/21 cholecalciferol (vitamin D3) [Vitamin D3] 50 mcg PO DAILY 08/04/21 aspirin 81 mg PO BREAKFAST #30 tab 08/06/21 aspirin 81 mg PO DAILY #30 tab 08/06/21 furosemide 40 mg PO DAILY #30 tab 08/06/21 furosemide [Lasix] 40 mg PO DAILY #30 tab 08/06/21 potassium chloride [Klor-Con M20] 20 meq PO DAILY #30 tab 08/06/21 potassium chloride [Klor-Con M20] 20 meq PO DAILY #30 tab 08/06/21 Hospital Course Operations None Procedures 2-D Echocardiogram and Cardiac catheterization Summary of Care Provided Minutes Spent on Discharge: 45 Hospital Course: NATASHA DAVIDSON, is a 86 F with an extensive PMH as outlined who was admitted as a transfer from [facility] ED where she had presented with a complaint of shortness of breath at rest. She says she felt very weak and tired this morning and also felt short of breath and could not lay flat at all which was unusual for her. She denied any chest pain and admitted to a cough and some wheezing. She said cough was productive of clear sputum. She denied any chest pain, palpitations, dizziness, nausea or vomiting. She could not even go into work today because she was so tired so she went to the [facility] emergency room. SHe says she takes HCTZ and is not on any lasix. Her high sensitivity troponin was 138 there, and trended up to 180. [place] BNP [place] [address]88. Creatinine was 1.54 with a baseline not known. Her D dimer was elevated, but CTA was negative for PE. CXR showed volume overload. EKG showed a paced rhythm. She was given a dose of lasix and transferred to [facility] for further management. She was admitted and managed for acute HFrEF. Her troponins trended up markedly so she was diagnosed with nonstemi. Cardiology was consulted. She was diuresed with IV lasix. She had a cardiac cath on 08/05/2021 which showed clean coronaries. She had a 2D echo which showed EF of 25% with severe segmental systolic dysfunction and ICD or pacer leads in the right ventricle and RVSP of 60 mmHg and a small mobile calcified echodensity below the aortic valve apparatus which was present on previous 2D echoes.. Her shortness of breath and weakness improved and she felt much better. She was discharged home on 08/06/2021 on PO lasix 40mg daily with pO potassium 20meq daily as well as PO aspirin 81mg daily. 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 Patient seen and examined to discharge. She had no active complaints and felt much better today. She had an uneventful night. She requested that 1 month of pain medication prescription to be sent to the [facility] retail pharmacy and then another prescription to be sent to [facility] which is a regular pharmacy and is a mail-in order. Review of systems otherwise negative. Labs and vitals reviewed. Home medications reviewed and reconciled. Physical Exam Const alert, oriented x3 and no apparent distress General Appearance: cooperative, comfortable and well kempt Exam Limitations: no limitations HEENT normocephalic, head/scalp atraumatic and hearing grossly normal bilaterally Eyes PERRL, EOMs intact bilaterally and conjunctivae normal Neck no lymphadenopathy, supple and no JVD Resp Resp Narrative: mildly diminished breath sounds bibasally, no wheezes or crackles. On room air Cardio regular rate, regular rhythm, S1 normal heart sound, S2 normal heart sound and no murmurs GI normal to inspection, nondistended, normoactive bowel sounds, soft to palpation, non-tender, non-distended and hepatosplenomegaly Extremity normal to inspection, full ROM and no clubbing, cyanosis or edema Skin no rashes or lesions noted Neuro oriented x3, CN's II-XII intact bilaterally and moves all extremities Sensorium / Orientation: awake and alert Psych affect normal Weight / BMI Weight Weight: 129 lb 10.109 oz Body Mass Index (BMI) 24.7 ABG / Lab / Microbiology Data Result Diagrams: 08/06/21 05:42 08/06/21 05:42 Laboratory: Laboratory Results - last 24 hr 08/06/21 05:42: WBC 9.8, RBC 3.91 L, Hgb 7.8 L, Hct 23.8 L, MCV 60.9 L, MCH 19.9 L, MCHC 32.8, RDW Std Deviation 35.2, RDW Coeff of Catina 16.4 H, Plt Count 191, MPV TNP, Immature Gran % (Auto) 0.600, Neut % (Auto) 79.5 H, Lymph % (Auto) 13.8 L, [place] % (Auto) 6.0, Eos % (Auto) 0.0, Baso % (Auto) 0.1, Absolute Neuts (auto) 7.8 H, Absolute Lymphs (auto) 1.35, Nucleated RBC % 0 08/06/21 05:42: Sodium 141, Potassium 3.4 L, Chloride 107, Carbon Dioxide 27.0, Anion Gap 7, BUN 46 H, Creatinine 1.72 H, Estim Creat Clear Calc 18.37, Est GFR (MDRD) Af Amer 36 L, Est GFR (MDRD) Non-Af 30 L, BUN/Creatinine Ratio 26.7 H, Glucose 115 H, Calcium 9.0 Radiography Diagnostic Testing: Radiology Impression Chest X-Ray 08/05/21 05:00 IMPRESSION: 1. Patchy opacity right lower lung obscuring the right heart border may be due to consolidation/pneumonia in the right middle lobe. 2. Stable mild cardiomegaly. Electronically Signed: Bryn Moyer MD at 0:33 EDT , D/C Instructions Discharge Diet: Low fat / Low cholesterol Discharge Activity: Return to Normal Activity Weight Bearing Status: Weight bearing as tolerated Call your doctor if you observe: Fever of 101 or Higher, Shortness of breath, Dizziness, Swelling in the ankles and Chest pain Meaningful Use Info Meaningful Use Diagnoses (Choose all that apply): AMI and CHF AMI/Post PCI/Angioplasty Aspirin given w/in 24hrs of arrival?: Yes ASA at discharge?: Yes Antiplatelet Therapy at Discharge:: No Reason Antiplatelet Therapy not ordered:: not indicated Statins at discharge?: Yes Jose Antonio/ARB at discharge?: Yes Beta Mac at discharge?: Yes Done w/ Acute TN measure.: Yes Documented LVEF (%): 25 CHF JOSE ANTONIO/ARB ordered at discharge?: Yes Documented LVEF (%): 25 Discharge Plan Admission Admit Date/Time: 08/04/21 21:55 Primary Reason for Your Visit: NONSTEMI, HEART FAILURE Attending Provider: Josephine Still Primary Care Provider: Amadou Nye Consulting Providers: Vince Bermeo ; Fernandez Hernandez Instructions Patient Instructions: Coping with Heart Failure, Heart Attack Dc Discharge Orders/Prescriptions Prescriptions: New aspirin 81 mg Tablet,Chewable 81 mg PO BREAKFAST Qty: 30 RF: 1 furosemide 40 mg tablet 40 mg PO DAILY Qty: 30 RF: 0 potassium chloride [Klor-Con M20] 20 mEq tablet,ER particles/crystals 20 meq PO DAILY Qty: 30 RF: 1 furosemide [Lasix] 40 mg tablet 40 mg PO DAILY Qty: 30 RF: 3 potassium chloride [Klor-Con M20] 20 mEq tablet,ER particles/crystals 20 meq PO DAILY Qty: 30 RF: 3 aspirin 81 mg tablet,chewable 81 mg PO DAILY Qty: 30 RF: 2 Continued omega-3 fatty acids [Fish Oil Concentrate] 1,000 mg capsule 1,000 mg PO DAILY RF: 0 famotidine [Pepcid] 20 mg tablet 20 mg PO DAILY RF: 0 hyoscyamine sulfate 0.125 mg tablet, sublingual 0.125 mg PO BID PRN PRN (Reason: Cramps) RF: 0 phenazopyridine [Pyridium] 100 mg tablet 100 mg PO TID PRN (Reason: painful urination) RF: 0 multivitamin Tablet 1 tab PO DAILY RF: 0 albuterol sulfate [ProAir HFA] 90 mcg/actuation HFA aerosol inhaler 2 puff inhalation Q4H PRN (Reason: breathing) RF: 0 fluticasone propionate [Flonase Allergy Relief] 50 mcg/actuation spray,suspension 2 spray intranasal DAILY RF: 0 budesonide-formoterol [Symbicort] 160-4.5 mcg/actuation HFA aerosol inhaler 2 puff INHALATION BID RF: 0 cholecalciferol (vitamin D3) [Vitamin D3] 50 mcg (2,000 unit) Tablet 50 mcg PO DAILY RF: 0 Gaviscon 80-14.2 mg Tablet,Chewable 1 tab PO DAILY PRN PRN (Reason: Acid Reflux) RF: 0 Entresto 24-26 mg tablet 1 tab PO BID RF: 0 coenzyme Q10 [Co Q-10] 100 mg capsule 100 mg PO DAILY RF: 0 carvedilol 25 mg tablet 25 mg PO BID Qty: 180 RF: 3 simvastatin 20 mg tablet 20 mg PO QHS Qty: 90 RF: 3 Discontinued hydrochlorothiazide 25 mg tablet 12.5 mg PO DAILY RF: 0 Referrals / Follow Up: Amadou Nye MD [Primary Care Provider] - Within 2 Weeks Fernandez Hernandez MD [STAFF PHYSICIAN] - Within 2 Weeks Disposition Disposition (needs filled in before D/C Order can be placed): Home, Self Care Charges/Coding Visit Charges Inpatient E&M: 74775 Disch Hosp
--- NOTE | 2021-08-06 10:42 | PN.CARD_ITS ---
Subjective Subjective Patient seen and evaluated. Appears to be doing quite well. Rather talkative this morning. Wants to go home. Objective Data Vital Signs: Vital Signs Temp Pulse Resp BP Pulse Ox 97.8 F 72 16 129/63 H 98 08/06/21 10:00 08/06/21 10:00 08/06/21 10:00 08/06/21 10:00 08/06/21 10:00 Oxygen Flow Rate (L/min) 2 Oxygen Delivery Method Room Air Weight: 129 lb 10.109 oz Body Mass Index (BMI) 24.7 Intake & Output: Intake and Output for Last 24 Hours 08/04/21 08/05/21 08/06/21 23:59 23:59 23:59 Intake Total 320 / 320 944.83 / 1184.83 340 / 340 Balance 320 / 320 944.83 / 1184.83 340 / 340 Lab / Micro Data Result Diagrams: 08/06/21 05:42 08/06/21 05:42 Labs: Laboratory Results - last 24 hr 08/06/21 05:42: WBC 9.8, RBC 3.91 L, Hgb 7.8 L, Hct 23.8 L, MCV 60.9 L, MCH 19.9 L, MCHC 32.8, RDW Std Deviation 35.2, RDW Coeff of Catina 16.4 H, Plt Count 191, MPV TNP, Immature Gran % (Auto) 0.600, Neut % (Auto) 79.5 H, Lymph % (Auto) 13.8 L, [place] % (Auto) 6.0, Eos % (Auto) 0.0, Baso % (Auto) 0.1, Absolute Neuts (auto) 7.8 H, Absolute Lymphs (auto) 1.35, Nucleated RBC % 0 08/06/21 05:42: Sodium 141, Potassium 3.4 L, Chloride 107, Carbon Dioxide 27.0, Anion Gap 7, BUN 46 H, Creatinine 1.72 H, Estim Creat Clear Calc 18.37, Est GFR (MDRD) Af Amer 36 L, Est GFR (MDRD) Non-Af 30 L, BUN/Creatinine Ratio 26.7 H, Glucose 115 H, Calcium 9.0 Cardiology Labs/Tests 08/06/21 05:42: WBC 9.8, RBC 3.91 L, Hgb 7.8 L, Hct 23.8 L, MCV 60.9 L, MCH 19.9 L, MCHC 32.8, Plt Count 191, MPV TNP, Immature Gran % (Auto) 0.600, Neut % (Auto) 79.5 H, Lymph % (Auto) 13.8 L, [place] % (Auto) 6.0, Eos % (Auto) 0.0, Baso % (Auto) 0.1, Absolute Neuts (auto) 7.8 H, Nucleated RBC % 0 08/06/21 05:42: Sodium 141, Potassium 3.4 L, Chloride 107, Carbon Dioxide 27.0, Anion Gap 7, BUN 46 H, Creatinine 1.72 H, Est GFR (MDRD) Af Amer 36 L, Est GFR (MDRD) Non-Af 30 L, BUN/Creatinine Ratio 26.7 H, Glucose 115 H, Calcium 9.0 Rhythm: EKG: ECHO: Stress Test: Cardiac Cath: PCI: CT Surgery: Holter monitor: EPS: PPM: CXR: Chest CT Scan: Radiography Diagnostic Testing: Radiology Impression Chest X-Ray 08/05/21 05:00 IMPRESSION: 1. Patchy opacity right lower lung obscuring the right heart border may be due to consolidation/pneumonia in the right middle lobe. 2. Stable mild cardiomegaly. Electronically Signed: Bryn Moyer MD at 0:33 EDT , Physical Exam Const alert and oriented x3 Orientation / Consciousness: awake HEENT normocephalic, head/scalp atraumatic and hearing grossly normal bilaterally Eyes PERRL and EOMs intact bilaterally Neck full ROM and supple Resp Auscultation: rales bilateral lower (Improved compared to the previous examination) Cardio regular rate, regular rhythm, S1 normal heart sound and S2 normal heart sound Heart Sounds: murmur systolic II/ harsh mid left sternal border and LVOT GI normal to inspection, nondistended, normoactive bowel sounds Extremity no pedal edema Skin no rashes or lesions noted Neuro oriented x3, moves all extremities, no focal motor deficits and no sensory deficits noted Psych mental status grossly normal Assessment & Plan Assessment/Plan (1) CHF (congestive heart failure): PLAN: The patient appears to have acute on chronic systolic mediated CHF. I would recommend at this time that the patient be discharged on oral Lasix 40 mg once a day. This can be adjusted at home. She will continue the other medications including the beta-zoila and the Entresto. (2) Dilated cardiomyopathy: PLAN: The patient has a history of a non-CAD related dilated cardiomyopathy. This has been confirmed with a cardiac catheterization during this admission. I would also recommend that we put her on Jardiance or Farxiga prior to her discharge. 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 She will continue to be followed in the defibrillator device clinic It has been monitored in the past and has been functioning appropriately. (4) Hyperlipidemia: QUALIFIERS: Hyperlipidemia type: unspecified Qualified Code(s): E78.5 - Hyperlipidemia, unspecified PLAN: The patient should continue risk factor evaluation care. (5) Essential hypertension: PLAN: The patient's blood pressure needs to be monitored and her medications adjusted taking into consideration her other comorbidities, etc.
--- NOTE | 2021-08-06 12:04 | CASEMGMT ---
Per [facility] retail pharmacy, pt needs prior auth for jardiance. Call to [facility] and prior auth obtained. Call back to [facility] retail pharmacy and they state they are unable to fill d/t [facility] already filling for pt. Scripts were sent to [facility] and [facility] simultaneously. Dr. Still updated, voices understanding. [facility] pharmacy also states that pt is refusing med at this time anyway. Per Dr. Machuca, pt can f/u with Dr. Hernandez in office to discuss. Per Shirley QUEVEDO, pt does not qualify for home oxygen. Blake QUEVEDO CM
--- NOTE | 2021-08-08 10:43 | CASEMGMT ---
Call to track watchman office to update on the Jardiance prior auth and pt refusal of med. James, Dr. Fernandez's nurse, states she will notify Dr. Hernandez. Blake QUEVEDO CM
== END 2021-08-06 16:31 | disposition home or self-care (01) | DRG 280 ==
PROVIDERS: Family Medicine; Admitting Provider Student in an Organized Health Care Education/Training Program; PCP Family Medicine; Visit Provider Student in an Organized Health Care Education/Training Program
DX: I11.0 Hypertensive heart disease with heart failure (principal); I21.A1 Myocardial infarction type 2; I50.23 Acute on chronic systolic (congestive) heart failure; I42.0 Dilated cardiomyopathy; D64.9 Anemia, unspecified; E78.5 Hyperlipidemia, unspecified; I25.10 Atherosclerotic heart disease of native coronary artery without angina pectoris; K21.9 Gastro-esophageal reflux disease without esophagitis; D56.3 Thalassemia minor; R09.02 Hypoxemia; N28.9 Disorder of kidney and ureter, unspecified; Z95.810 Presence of automatic (implantable) cardiac defibrillator; Z79.899 Other long term (current) drug therapy; Z79.51 Long term (current) use of inhaled steroids
CPT/HCPCS: 36415; 71045; 80048; 80061; 83735; 84484; 85025; 93005; 93454; 94640; 97162; 97166; 99152; 99153; J7030; A4216; C1769; C1894; J1940; Q9967

== ENCOUNTER → 2023-06-11 | Outpatient (CLI) | payer MEDICARE, SELFPAY ==
--- NOTE | 2023-06-11 10:03 | ECHOD_ITS ---
Reason For Study: Dilated CMP Procedure This was a 2D Doppler, Color Flow transthoracic echocardiogram. Exam performed in department. Left Ventricle Normal LV size. Moderate concentric left ventricular hypertrophy. The left ventricular ejection fraction is 25 %. The rest of the wall segments are hypokinetic. [place] : Akinetic. Right Ventricle Normal RV size. ICD or pacer leads identified within the right ventricle. Normal systolic function. Atria Normal left atrium. Normal right atrium. Mitral Valve There is moderate mitral annular calcification. Tricuspid Valve Normal tricuspid valve. Mild (1+) tricuspid valve insufficiency. Pulmonary artery systolic pressure is 23 mmHg. Aortic Valve Trisinus/trileaflet aortic valve. Mild focal aortic valve calcification. Peak aortic valve gradient 13 mmHg. Mean aortic valve gradient 8 mmHg. Pulmonic Valve Normal pulmonic valve. Great Vessels Normal aortic root. The pulmonary artery is normal size. Inferior vena cava collapse with respiration. Pericardium/Pleural No pericardial effusion. MMode/2D Measurements & Calculations LVIDd: 5.0 cm IVSd: 1.4 cm LVOT diam: 2.0 cm LVIDs: 3.7 cm LVPWd: 1.2 cm LVOT area: 3.2 cm2 RVDd: 2.8 cm FS: 26.2 % Ao root diam: 3.2 cm LAV(MOD-bp): 51.7 ml LVAd ap4: 37.4 cm2 LAV(MOD-bp) Indexed: 32.2 ml/m2 LVLd ap4: 8.8 cm LAV(MOD-sp2): 52.5 ml EDV(MOD-sp4): 131.7 ml LAV(MOD-sp4): 50.0 ml EDV(sp4-el): 135.2 ml LVAs ap4: 31.0 cm2 LVLs ap4: 8.3 cm ESV(MOD-sp4): 96.8 ml ESV(sp4-el): 97.8 ml EF(MOD-sp4): 26.5 % EF(sp4-el): 27.7 % LVAd ap2: 42.8 cm2 SV(MOD-sp4): 34.9 ml SV(MOD-sp2): 46.1 ml LVLd ap2: 8.8 cm EDV(MOD-sp2): 166.9 ml EDV(sp2-el): 177.3 ml LVAs ap2: 36.0 cm2 LVLs ap2: 8.5 cm ESV(MOD-sp2): 120.8 ml ESV(sp2-el): 129.2 ml EF(MOD-sp2): 27.6 % SV(sp4-el): 37.4 ml LA dimension(2D): 3.7 cm LA A4 area: 16.7 cm2 RA A4 area: 10.2 cm2 Doppler Measurements & Calculations MV E max adebayo: 113.9 cm/sec Lat Peak E' Adebayo: 4.4 cm/sec Med Peak E' Adebayo: 3.9 cm/sec E/E' lat: 25.9 E/E' med: 29.6 Ao V2 max: 182.4 cm/sec LV V1 max: 107.7 cm/sec SV(LVOT): 67.3 ml Ao max P.3 mmHg LV V1 max P.7 mmHg Ao V2 mean: 138.0 cm/sec LV V1 mean P.5 mmHg Ao mean P.3 mmHg LV V1 mean: 75.0 cm/sec Ao V2 VTI: 38.8 cm LV V1 VTI: 20.9 cm AV (velocity ratio): 0.54 HOMER(I,D): 1.7 cm2 HOMER(V,D): 1.9 cm2 PA V2 max: 92.4 cm/sec TR max adebayo: 221.6 cm/sec TR max P.6 mmHg ECHO/Echo Complete Interpretation Summary Normal LV size. The left ventricular ejection fraction is 25 %. Moderate concentric left ventricular hypertrophy. Mild (1+) tricuspid valve insufficiency. Pulmonary artery systolic pressure is 23 mmHg. Compared to previous study, the left ventricular systolic function is the same. . Ordering Physician: Fidencio Machuca Referring Physician: Shae Ledesma Performed By: Cindi Kim, TRACEE
== END | disposition home or self-care (01) ==
PROVIDERS: PCP Family Medicine; Referring Provider Internal Medicine Cardiovascular Disease; Visit Provider Internal Medicine Cardiovascular Disease
DX: I42.0 Dilated cardiomyopathy (principal); I35.9 Nonrheumatic aortic valve disorder, unspecified; Z95.810 Presence of automatic (implantable) cardiac defibrillator
CPT/HCPCS: 93306